=== PATIENT | male | born 1965 | race Caucasian/White ===

== ENCOUNTER 2024-11-24 10:15 | Emergency (ER) | payer OTHER, MEDICAID, SELFPAY ==
[2024-11-24] VITALS (46 sets, daily range): BP systolic 96–126; BP diastolic 46–84; PULSE 75–110; RESP 15–19; TEMP 36–38.1; O2SAT 87–100; BMI 29.8
--- NOTE | 2024-11-24 10:35 | PD.EDRME ---
Rapid Medical Screening Exam E Arrival date/time: 11/24/24 10:15 58-year-old male with a history of pancreatic cancer presents to the emergency room with a chief complaint of a low hemoglobin level. Patient is unsure what the level is but states his primary care provider called him and told him to come to the emergency room. I have greeted and performed a focused initial assessment of this patient. A comprehensive ED assessment and evaluation of the patient, analysis of all test results, and completion of the medical decision making process will be conducted by additional ED providers. Chief Complaint: General Adult/Misc Complain Vital signs: Vital Signs Temperature 99.4 F 11/24/24 10:28 Pulse Rate 100 11/24/24 10:28 Respiratory Rate 18 11/24/24 10:28 Blood Pressure 117/71 11/24/24 10:28 Pulse Oximetry (%) 100 11/24/24 10:28 Oxygen Delivery Method Room Air 11/24/24 10:28 Vital signs reviewed by provider: Yes
[2024-11-24 11:10] LABS: Basophils # (Auto) 0.0 Thou/mm3 (0.0-0.2); Basophils % (Auto) 0 % (0-2.5); Eosinophils # (Auto) 0.0 Thou/mm3 (0.0-0.5); Eosinophils % (Auto) 0 % (0-10); Immature Granulocytes Auto 0.23 Thou/mm3 (0.00-0.00); Lymphocytes # (Auto) 0.7 Thou/mm3 (1.0-4.8); Lymphocytes % (Auto) 21 % (10-50); Mean Corpuscular HGB Conc 35.8 g/dl (31.0-37.0); Mean Corpuscular Hemoglobin 29.7 pg (25.0-35.0); Mean Corpuscular Volume 83 fL (80-100); Monocytes # (Auto) 0.3 Thou/mm3 (0.0-0.8); Monocytes % (Auto) 10 % (0-12); Neutrophils # (Auto) 2.3 Thou/mm3 (1.8-7.7); Neutrophils % (Auto) 63 % (37-80); Nucleated Red Blood Cell # 0.00 Thou/mm3 (0.00-0.00); Nucleated Red Blood Cell % 0 /100 WBC (0); RDW Standard Deviation 55.4 fL (35.1-43.9); Red Blood Count 1.65 Miln/mm3 (4.50-5.90); White Blood Count 3.6 Thou/mm3 (3.8-10.6)
[2024-11-24 11:18] LABS: Hematocrit 13.7 % (41.0-53.0); Hemoglobin 4.9 g/dL (13.5-16.0); Platelet Count 78 Thou/mm3 (140-440)
[2024-11-24 11:22] LABS: INR 1.2 (0.9-1.3); Partial Thromboplastin Time 27.3 Seconds (22.0-36.0); Prothrombin Time 12.5 Seconds (9.0-12.2)
--- NOTE | 2024-11-24 11:23 | PD.EDADULT ---
ED General RME/HPI General Chief complaint: General Adult/Misc Complain Stated complaint: WEAKNESS, DIZZINESS, LOW HGB, SENT FOR TRANSFUSION Time Seen by Provider: 11/24/24 11:23 Arrival date/time: 11/24/24 10:15 RME / HPI RME / HPI narrative: 58-year-old male patient with significant history of pancreatic cancer, was sent to us by oncologist for anemia. Patient is followed by his oncologist every 2 weeks, and was noted to significant anemia. Patient denies any bleeding per rectum, no vomiting blood. Patient is currently not on any transfusion, patient told me that he is pancreatic cancer or any mets to the liver. Denies any other complaints except for generalized body weakness. Related Data Allergies Allergy/AdvReac Type Severity Reaction Status Date / Time hydrocodone Allergy Mild Nausea Verified 11/24/24 10:19 PCN Allergy Severe Anaphylaxis Uncoded 11/24/24 10:19 Review of Systems Review of Systems Narrative Review of Systems: Review of system reviewed and within normal limits except mentioned in HPI ED Exam Narrative Physical exam: VITAL SIGNS: Reviewed. GENERAL APPEARANCE: Alert and interactive, follows commands, no acute distress, HEAD AND FACE: Non-traumatic. ENT: PERRL, pale conjunctiva, eyelid no trauma, Mucous membrane moist. NECK: Supple, nontender, no nuchal rigidity. CHEST: No tenderness, no crepitus, no paradoxical movement, no retractions. LUNGS: Clear, well ventilated, symmetric, no rales, no wheezing, no ronchi, no stridor, good breath sounds bilaterally. HEART: Regular rate, regular rhythm, no murmur, no gallops. ABDOMEN: Soft, positive bowel sounds, nondistended, no guarding, nontender, no rebound, no masses, RECTAL: Deferred. GENITAL: Deferred. NEUROLOGICAL: Gross motor function intact sensory function intact, Appropriate for age. MUSCULOSKELETAL: low back nontender, full range of motion. EXTREMITIES: Nontender, full range of motion. SKIN: Color pale, dry, no rash, no lacerations, no abrasions, no contusions. LYMPHATICS: Deferred. Course Quality Measures none Orders Category Date Time Status Transfuse,blood/blood products ONCE Care 11/24/24 11:35 Active Diet Regular Diet 11/24/24 Lunch Active CBC Stat Lab 11/24/24 11:01 Completed CMP [Comprehensive Metabolic Panel] Stat Lab 11/24/24 11:01 Completed PT [Prothrombin Time with INR] Stat Lab 11/24/24 11:01 Completed PTT [Partial Thromboplastin Time] Stat Lab 11/24/24 11:01 Completed Path Review Blood Smear Stat Lab 11/24/24 11:01 Completed Type and Screen Stat Lab 11/24/24 11:01 Results prbc [Red Blood Cells] Stat Lab 11/24/24 11:01 Results Acetaminophen Tab [Tylenol ES Tab] Med 11/24/24 16:49 Discontinued 1,000 mg PO X1 ONE DiphenhydrAMINE [Benadryl] Med 11/24/24 16:49 Discontinued 50 mg PO X1 ONE HYDROmorphone INJ [Dilaudid Inj] Med 11/24/24 11:35 Discontinued 2 mg IVP X1 ONE Morphine Inj Med 11/24/24 14:44 Discontinued 5 mg IVP X1 ONE Vital Signs Vital signs: Vital Signs Temperature 99.4 F 11/24/24 10:28 Pulse Rate 100 11/24/24 10:28 Respiratory Rate 18 11/24/24 10:28 Blood Pressure 117/71 11/24/24 10:28 Pulse Oximetry (%) 100 11/24/24 10:28 Oxygen Delivery Method Room Air 11/24/24 10:28 Discharge Plan Plan Patient Disposition: HOME (Self Care) Discharge Disposition comment: Stable Prescriptions/Referrals Referrals: No Primary/Family,Physician [Primary Care Provider] - In 1 week Problem List Clinical Impression: Severe anemia, History of pancreatic cancer Patient/Caregiver Discharge Instructions Discharge Activity: activity as tolerated Education Materials: Anemia Additional Instructions: Thank you for the opportunity for serving you today. You are stable for discharged . You are advised to: Follow-up with your PCP in 1 to 2 days Return to ED for worsening of symptoms Print Language: Kiswahili Stand Alone Forms: Mile Award Info., Patient Portal Info Letter PA/LIZZY Supervising Physician NGHIA/LIZZY Supervising Physician: MD Dania MDM Narrative MDM hospital course: [id number] male patient with significant history of pancreatic cancer, was sent to us by oncologist for anemia. Patient is followed by his oncologist every 2 weeks, and was noted to significant anemia. Patient denies any bleeding per rectum, no vomiting blood. Patient is currently not on any transfusion, patient told me that he is pancreatic cancer or any mets to the liver. Denies any other complaints except for generalized body weakness. Patient's hemoglobin was noted to be 4.9 hematocrit of 13.7. Patient received 3 units of packed RBC. No posttransfusion reaction noted. Patient tolerated the procedure well. Clinical Information Provided by patient Medical Records Reviewed None Meds/Rx Considered, not Ordered None Chronic Illness/Social Conditions Add or document further as needed: History of pancreatic cancer Lab Interpretation Lab(s) interpretation(s): See results MDM Imaging Imaging interpretation: none Medication Administration(s) Medication Administration History Discontinued Medications Acetaminophen (Acetaminophen 500 Mg Tablet) 1,000 mg PO X1 ONE Stop: 11/24/24 16:50 Last Admin: 11/24/24 17:25 Dose: 1,000 mg Documented By: CG Diphenhydramine HCl (Diphenhydramine 25 Mg Capsule) 50 mg PO X1 ONE Stop: 11/24/24 16:50 Last Admin: 11/24/24 17:25 Dose: 50 mg Documented By: CG Hydromorphone HCl (Hydromorphone Inj 2 Mg/Ml Vial) 2 mg IVP X1 ONE Stop: 11/24/24 11:36 Last Admin: 11/24/24 12:06 Dose: 2 mg Documented By: CG Morphine Sulfate (Morphine Sulf Inj 10 Mg/Ml Vial) 5 mg IVP X1 ONE Stop: 11/24/24 14:45 Last Admin: 11/24/24 15:18 Dose: 5 mg Documented By: CG
[2024-11-24 11:25] LABS: Alanine Aminotransferase 25 U/L (10-49); Albumin, Serum 3.4 gm/dL (3.5-5.0); Albumin/Globulin Ratio 1.1 (1.2-2.2); Alkaline Phosphatase 529 U/L (46-116); Anion Gap 11 (7-16); Aspartate Amino Transferase 22 U/L (0-34); BUN/Creatinine Ratio 13 Ratio (12-20); Bilirubin,Total 0.9 mg/dL (0.3-1.2); Blood Urea Nitrogen 10 mg/dL (9-23); Calcium 8.4 mg/dL (8.3-10.6); Calcium (Corrected) 8.9 mg/dL (8.5-10.1); Carbon Dioxide 26.3 mMol/L (20.0-31.0); Chloride 100 mMol/L (98-107); Creatinine (Component) 0.8 mg/dL (0.6-1.3); Estimated Creatinine Clearance 135.7 mL/min (>60); Globulin 3.1 gm/dL (2.3-3.5); Glucose 165 mg/dL (74-106); Osmolality,Calculated 276 (275-295); Potassium 4.3 mMol/L (3.4-5.1); Sodium 137 mMol/L (136-145); Total Protein 6.5 gm/dL (5.7-8.2); eGFR > 60 See Note
[2024-11-24 11:48] LABS: Slide Review Platelets confirmed
[2024-11-24] MEDS: HYDROmorphone INJ 2 MG/ML VIAL IVP (12:06)
[2024-11-24] MEDS: MORPHINE SULF INJ 10 MG/ML VIAL 5 MG IVP (15:18)
[2024-11-24] MEDS: ACETAMINOPHEN 500 MG TABLET 1000 MG PO (17:25)
[2024-11-24 18:04] LABS: Path Review Blood Smear Sent to Pathologist
--- NOTE | 2024-11-24 21:32 | PC.NURSE ---
THE 3RD UNIT OF BLOOD WAS NOT DOCUMENTED BY PREVIOUS NURSE. PER CHARGE NURSE RK, HE REQUESTED TO START AND STOP THE BLOOD PRODUCT. THE TIMES THAT THE 3RD BLOOD PRODUCT WAS STARTED WAS APPROXIMATED BECAUSE THIS RN WAS NOT ON THE FLOOR DURING THAT TIME. THE FIRST 30MIN VITAL SIGNS WERE NOT CHARTED BY PREVIOUS RN
== END 2024-11-24 21:00 | disposition home or self-care (01) ==
PROVIDERS: Nurse Practitioner Family; Emergency Provider Family Medicine
DX: D64.9 Anemia, unspecified (principal); Z85.07 Personal history of malignant neoplasm of pancreas
CPT/HCPCS: 36415; 36430; 80053; 85025; 85610; 85730; 86850; 86900; 86901; 86923; 96374; 96375; 99284; J1171; J2270; P9016; A9270

== ENCOUNTER 2024-11-25 17:42 | Emergency (ER) | payer OTHER, MEDICAID, SELFPAY ==
[2024-11-25] VITALS (9 sets, daily range): BP systolic 107–132; BP diastolic 61–73; PULSE 87–117; RESP 10–19; TEMP 37–39.5; O2SAT 96–100; BMI 29.2
--- NOTE | 2024-11-25 18:03 | XR_ITS ---
Examination: PA lateral chest 2 views Technique portable upright PA lateral chest 2 views Date and time: November 25, 2024 1817 hours INDICATIONS: Shortness of breath coughing today. FINDINGS: Normal heart size The lungs are clear. The osseous structures are intact. IMPRESSION: No active disease.
--- NOTE | 2024-11-25 18:03 | EKG_ITS ---
[facility] Test Date: 2024-11-25 Pat Name: CAMERON EDGAR Department: Room: - Gender: Male [employer]: : 1965 Requested By: Nataliya North Order Number: [id number] Reading MD: Nataliya North Measurements Intervals [place]ley Rate: 102 P: 64 OK: 145 QRS: 29 QRSD: 83 T: 32 QT: 312 QTc: 407 Interpretive Statements SINUS TACHYCARDIA ABNORMAL RHYTHM ECG No previous ECG available for comparison /store/S0/[id number]/[id number].pdf
--- NOTE | 2024-11-25 18:05 | XR_ITS ---
Examination: CT chest with intravenous contrast CT abdomen with intravenous contrast CT pelvis with intravenous contrast 2-D coronal and sagittal reconstructions Time of exam: November 25, 2024 1930 hours INDICATIONS: Anemia, fever coughing chest and abdominal pain beginning yesterday CTDI: vol (mGy) : 12.5 DLP: (mGycm): 1037 Technique: Multiple axial images of the chest, abdomen and pelvis with intravenous contrast, 3.0 mm slice thickness. Images obtained post intravenous injection Isovue 370 60 cc. 2-D sagittal and coronal reconstructions. Low dose protocols were performed. One or more of the following dose reduction techniques were used; automated exposure control, adjustment of the mA and/or KV according to patient size, use of iterative reconstruction technique. Findings: No thoracic aortic aneurysm dilatation No pulmonary artery filling defects No paratracheal tracheobronchial or bronchopulmonary adenopathy 4 mm pulmonary nodule right upper lobe image 97 5 mm pulmonary nodule right lower lobe image 206 No visualized liver or splenic lesion Gastric sutures Biliary stent satisfactory position Gallbladder wall appears mildly thickened No current biliary tract dilatation Spleen is not enlarged No hydronephrosis or renal calculi No bowel obstruction Urinary bladder wall is thickened up to 6 mm No significant prostatomegaly Osseous structures intact IMPRESSION: No pneumonia or pulmonary edema Noncalcified pulmonary nodules as above, with this study is baseline recommend 6 month follow-up CT chest without contrast Biliary stent satisfactory position Recommend hepatobiliary sonography follow-up to exclude gallbladder wall thickening Cystitis pattern
--- NOTE | 2024-11-25 18:05 | EDNOTE_ITS ---
ED Fever RME/HPI General Chief Complaint: Fever Stated Complaint: High fever 103, nausea Time Seen by Provider: 11/25/24 17:55 Arrival date/time: 11/25/24 17:42 RME / HPI RME / HPI Narrative: 58-year-old male patient with significant history of pancreatic cancer, was brought in by family for evaluation regarding fever. Patient woke up this morning with fever, it was mild earlier took a nap and woke up with a fever of 103. Patient also complained of cough, and chronic abdominal pain due to pancreatic cancer. Was diagnosed recently however still pending chemotherapy and radiation. Denies any other complaints. Patient was seen here yesterday and was given 3 units of packed RBC. No medication taken prior to arrival. In the ER patient is tachycardic 117 and temperature 103 sepsis alert was initiated right away. Related Data Allergies Allergy/AdvReac Type Severity Reaction Status Date / Time hydrocodone Allergy Mild Nausea Verified 11/25/24 17:46 PCN Allergy Severe Anaphylaxis Uncoded 11/25/24 17:46 Review of Systems Review of Systems Narrative Review of Systems: Review of system reviewed and within normal limits except mentioned in HPI Physical Exam Narrative Physical exam: VITAL SIGNS: Reviewed. GENERAL APPEARANCE: Alert and interactive, follows commands, no acute distress, febrile HEAD AND FACE: Non-traumatic. ENT: PERRL, pink conjunctivitis, eyelid no trauma, Mucous membrane moist. NECK: Supple, nontender, no nuchal rigidity. CHEST: No tenderness, no crepitus, no paradoxical movement, no retractions. LUNGS: Clear, well ventilated, symmetric, no rales, no wheezing, no ronchi, no stridor, good breath sounds bilaterally. HEART: Tachycardic, no murmur, no gallops. ABDOMEN: Soft, positive bowel sounds, nondistended, no guarding, nontender, no rebound, no masses, RECTAL: Deferred. GENITAL: Deferred. NEUROLOGICAL: Gross motor function intact sensory function intact, Appropriate for age. MUSCULOSKELETAL: low back nontender, full range of motion. EXTREMITIES: Nontender, full range of motion. SKIN: Color pink, dry, no rash, no lacerations, no abrasions, no contusions. LYMPHATICS: Deferred. Course Quality Measures none Orders Category Date Time Status Bedside COVID-19 Antigen Test NOW Care 11/25/24 18:[address] Screening NOW Care 11/25/24 18:05 Active First Line Production Supervisor STAT Care 11/25/24 18:03 Active Continuous Pulse Oximetry STAT Care 11/25/24 18:03 Completed EKG (ED ONLY) *Do not use* NOW Care 11/25/24 18:03 Completed In and Out Catheter [id number] Care 11/25/24 18:03 Active Insert IV NOW Care 11/25/24 18:03 Active NPO STAT Care 11/25/24 18:03 Active Strict Intake and Output Routine Care 11/25/24 18:[address] chest abdomen pelvis w Stat Exams 11/25/24 18:05 Completed EKG (ED Only) Stat Exams 11/25/24 18:03 Draft US gall bladder Stat Exams 11/25/24 21:32 Taken XR chest 2V Stat Exams 11/25/24 18:03 Completed B-Type Natriuretic Peptide Stat Lab 11/25/24 18:09 Completed Blood Culture (Lab) Stat Lab 11/25/24 18:03 Received CBC Stat Lab 11/25/24 18:09 Completed Comprehensive Metabolic Panel Stat Lab 11/25/24 18:09 Completed LDH (Lactate Dehydrogenase) Stat Lab 11/25/24 18:09 Completed Lactate (Lactic Acid) Stat Lab 11/25/24 18:09 Completed Lipase Stat Lab 11/25/24 18:09 Completed Magnesium Stat Lab 11/25/24 18:09 Completed Partial Thromboplastin Time Stat Lab 11/25/24 18:09 Completed Phosphorous Stat Lab 11/25/24 18:09 Completed Procalcitonin Stat Lab 11/25/24 18:09 Completed Prothrombin Time with INR Stat Lab 11/25/24 18:09 Completed Troponin I Stat Lab 11/25/24 18:09 Completed Urinalysis Stat Lab 11/25/24 21:19 Completed Urine Culture Stat Lab 11/25/24 21:19 Received Acetaminophen Tab [Tylenol ES Tab] Med 11/25/24 18:04 Discontinued 1,000 mg PO X1 ONE HYDROmorphone INJ [Dilaudid Inj] Med 11/25/24 19:12 Discontinued 2 mg IVP X1 ONE Magnesium Sulfate 2 GM Ivpb [Magnesium Sulfate Ivpb] Med 11/25/24 19:27 Discontinued 2 gm in 50 ml IV X1 Ringers Lactated 1000 ml [Lactated Ringers] 1,000 ml Med 11/25/24 18:04 Discontinued IV 999 mls/hr cefTRIAXone/D5w 1gm IV premix [Rocephin/D5w 1gm IV Med 11/25/24 18:04 Discontinued premix] 1 gm in 50 ml IV X1 Oxygen Delivery NOW RT 11/25/24 18:03 Active Vital Signs Vital signs: Vital Signs Temperature 103.1 F H 11/25/24 17:53 Pulse Rate 117 H 11/25/24 17:53 Respiratory Rate 19 11/25/24 17:53 Blood Pressure 110/63 11/25/24 17:53 Pulse Oximetry (%) 96 11/25/24 17:53 Oxygen Delivery Method Room Air 11/25/24 17:53 Fever MDM Narrative MDM Narrative:: 58-year-old male patient with significant history of pancreatic cancer, was brought in by family for evaluation regarding fever. Patient woke up this morning with fever, it was mild earlier took a nap and woke up with a fever of 103. Patient also complained of cough, and chronic abdominal pain due to pancreatic cancer. Was diagnosed recently however still pending chemotherapy and radiation. Denies any other complaints. Patient was seen here yesterday and was given 3 units of packed RBC. No medication taken prior to arrival. In the ER patient is tachycardic 117 and temperature 103 sepsis alert was initiated right away. EKG showed sinus tachycardia, ventricular to 102 bpm, no ST segment elevation or depression. CT scan of the chest abdomen and pelvis showed No pneumonia or pulmonary edema Noncalcified pulmonary nodules as above, with this study is baseline recommend 6 month follow-up CT chest without contrast Biliary stent satisfactory position Recommend hepatobiliary sonography follow-up to exclude gallbladder wall thickening Cystitis pattern Chest x-ray came back unremarkable. Ultrasound of the gallbladder came back unremarkable per my interpretation. Patient's lactic acid was noted to be normal, CBC still anemic 7.1 however patient just received 3 packed RBC yesterday. Yesterday's hemoglobin was noted to be 4.8. WBC count was noted to be 3.3 Urinalysis no UTI. Patient received IV fluids, Tylenol, and IV ceftriaxone. Patient's probably having fever secondary to the blood transfusion yesterday. Patient told me that he feels better after medication was given. He wanted to go home. Advised him to come back right away for worsening of symptoms Patient data External records reviewed:: None Clinical information provided by:: patient Social determinants that could affect healthcare access:: none Patient has the following chronic illnesses:: History of pancreatic cancer How is presenting disease/condition affected by chronic disease/condition?: exacerbated by Evaluation data The following diagnostics were reviewed and interpreted by me:: lab results, radiology exam(s) and EKG tracing(s) Lab and/or radiology exams considered but not ordered:: Stable Interpretation Summary: See results in MDM Medications / Prescriptions Medications or Prescriptions considered but not ordered:: None Medication administrations:: Medication Administration History Discontinued Medications Acetaminophen (Acetaminophen 500 Mg Tablet) 1,000 mg PO X1 ONE Stop: 11/25/24 18:05 Last Admin: 11/25/24 18:55 Dose: 1,000 mg Documented By: JAQUELINE Hydromorphone HCl (Hydromorphone Inj 2 Mg/Ml Vial) 2 mg IVP X1 ONE Stop: 11/25/24 19:13 Last Admin: 11/25/24 19:39 Dose: 2 mg Documented By: CANDY Lactated Ringer's (Lactated Ringers) 1,000 mls @ 999 mls/hr IV .Q1H1M ONE Stop: 11/25/24 19:04 Last Infusion: 11/25/24 20:54 Dose: Infused Documented By: Admin: 11/25/24 18:58 Dose: 999 mls/hr Documented By: JAQUELINE Ceftriaxone Sodium/Dextrose (Rocephin/D5w 1gm Iv Premix) 1 gm in 50 mls @ 100 mls/hr IV X1 ONE Stop: 11/25/24 18:33 Last Infusion: 11/25/24 19:47 Dose: Infused Documented By: Admin: 11/25/24 18:55 Dose: 100 mls/hr Documented By: JAQUELINE Magnesium Sulfate (Magnesium Sulfate Ivpb) 2 gm in 50 mls @ 25 mls/hr IV X1 ONE Stop: 11/25/24 21:26 Last Infusion: 11/25/24 22:15 Dose: Infused Documented By: Admin: 11/25/24 20:08 Dose: 25 mls/hr Documented By: CANDY Magnesium sulfate, ceftriaxone IV, IV fluids, Dilaudid, Tylenol Consultations Consultation(s) initiated? (list below): No Diagnosis Fever Differential Diagnosis: fever of unknown origin, community acquired pneumonia and sepsis Most likely diagnosis given after review of the tests above:: Fever Admission Indicated Admission indicated?: not indicated Admission Request Was there a request for admission?: No Disposition Plan Disposition Plan: Discharge Discharge Attestation Discharge Attestation: The patient was given an opportunity to ask questions and understood the discharge instructions. Discharge instructions specifically effects, indications for sooner follow up or return to the emergency department, and the expected course of current diagnosis. Patient condition: Stable Discharge Plan Plan Patient Disposition: HOME (Self Care) Discharge Disposition comment: Stable Prescriptions/Referrals Referrals: No Primary/Family,Physician [Primary Care Provider] - In 1 week Problem List Clinical Impression: Fever Patient/Caregiver Discharge Instructions Discharge Activity: activity as tolerated Education Materials: ED FUO Adult Additional Instructions: Thank you for the opportunity for serving you today. You are stable for dis charged . You are advised to: Follow-up with your PCP in 1 to 2 days Return to ED for worsening of symptoms Increase oral fluids Take Tylenol or Motrin as needed Print Language: St Helen[place] Stand Alone Forms: Mile Award Info., Patient Portal Info Letter NGHIA/LIZZY Supervising Physician NGHIA/LIZZY Supervising Physician: MD Dania
[2024-11-25 18:21] LABS: Lactate (Lactic Acid) 0.9 mMol/L (0.4-2.0)
[2024-11-25 18:28] LABS: Basophils # (Auto) 0.0 Thou/mm3 (0.0-0.2); Basophils % (Auto) 0 % (0-2.5); Eosinophils # (Auto) 0.0 Thou/mm3 (0.0-0.5); Eosinophils % (Auto) 0 % (0-10); Immature Granulocytes Auto 0.04 Thou/mm3 (0.00-0.00); Lymphocytes # (Auto) 0.9 Thou/mm3 (1.0-4.8); Lymphocytes % (Auto) 26 % (10-50); Mean Corpuscular HGB Conc 35.7 g/dl (31.0-37.0); Mean Corpuscular Hemoglobin 29.6 pg (25.0-35.0); Mean Corpuscular Volume 83 fL (80-100); Monocytes # (Auto) 0.3 Thou/mm3 (0.0-0.8); Monocytes % (Auto) 10 % (0-12); Neutrophils # (Auto) 2.1 Thou/mm3 (1.8-7.7); Neutrophils % (Auto) 63 % (37-80); Nucleated Red Blood Cell # 0.00 Thou/mm3 (0.00-0.00); Nucleated Red Blood Cell % 0 /100 WBC (0); Platelet Count 101 Thou/mm3 (140-440); RDW Standard Deviation 50.0 fL (35.1-43.9); Red Blood Count 2.40 Miln/mm3 (4.50-5.90); White Blood Count 3.3 Thou/mm3 (3.8-10.6)
[2024-11-25 18:31] LABS: Hemoglobin 7.1 g/dL (13.5-16.0)
[2024-11-25 18:33] LABS: Hematocrit 19.9 % (41.0-53.0)
[2024-11-25 18:38] LABS: INR 1.3 (0.9-1.3); Partial Thromboplastin Time 26.8 Seconds (22.0-36.0); Prothrombin Time 13.5 Seconds (9.0-12.2)
[2024-11-25 18:40] LABS: B-Type Natriuretic Peptide 86 pg/mL (0-100)
[2024-11-25 18:49] LABS: Alanine Aminotransferase 14 U/L (10-49); Albumin, Serum 3.4 gm/dL (3.5-5.0); Albumin/Globulin Ratio 1.1 (1.2-2.2); Alkaline Phosphatase 422 U/L (46-116); Anion Gap 7 (7-16); Aspartate Amino Transferase 11 U/L (0-34); BUN/Creatinine Ratio 11 Ratio (12-20); Bilirubin,Total 1.4 mg/dL (0.3-1.2); Blood Urea Nitrogen 9 mg/dL (9-23); Calcium 8.3 mg/dL (8.3-10.6); Calcium (Corrected) 8.8 mg/dL (8.5-10.1); Carbon Dioxide 26.0 mMol/L (20.0-31.0); Chloride 102 mMol/L (98-107); Creatinine (Component) 0.8 mg/dL (0.6-1.3); Estimated Creatinine Clearance 134.5 mL/min (>60); Globulin 3.1 gm/dL (2.3-3.5); Glucose 114 mg/dL (74-106); LDH (Lactate Dehydrogenase) 119 U/L (120-246); Lipase 60 U/L (12-53); Magnesium 1.2 mg/dL (1.6-2.6); Osmolality,Calculated 269 (275-295); Phosphorous 3.3 mg/dL (2.4-5.1); Potassium 4.4 mMol/L (3.4-5.1); Procalcitonin 0.12 ng/ml (0.0-0.49); Sodium 135 mMol/L (136-145); Total Protein 6.5 gm/dL (5.7-8.2); Troponin I < 0.002 ng/mL (0.0-0.045); eGFR > 60 See Note
[2024-11-25] MEDS: ACETAMINOPHEN 500 MG TABLET 1000 MG PO (18:55)
[2024-11-25] MEDS: cefTRIAXone/D5w 1gm IV premix 1 GM/50 ML BAG IV (18:55)
[2024-11-25] MEDS: RINGERS LACTATED 1000 ML 1,000 ML 999 ML IV (18:58)
--- NOTE | 2024-11-25 19:07 | PC.NURSE ---
PT GIVEN ICE PACKS FOR COOLING MEASURES, PT TAKES MORPHINE Q8HRS AND DILAUDED IN BETWEEN, PT REQUESTING MORPHINE FOR PAIN PROVIDER MADE AWARE.
[2024-11-25] MEDS: HYDROmorphone INJ 2 MG/ML VIAL IVP (19:39)
[2024-11-25] MEDS: Magnesium Sulfate 2 GM Ivpb 2 GM/50 ML BAG IV (20:08)
[2024-11-25 21:31] LABS: Collection Type, Urine Clean Catch; RBC,Urine 0 /hpf (0-3); WBC,Urine 0 /hpf (0-5)
--- NOTE | 2024-11-25 21:32 | XR_ITS ---
Examination: Abdomen sonogram, Limited Date and time of exam: November 25, 2024 2152 hours INDICATIONS: Gallbladder wall appears thickened on CT abdomen study today Technique: Real-time keane scale transabdominal sonographic images of the upper abdomen obtained. Findings: Negative for gallstones Gallbladder wall 0.7 cm Common bile duct 0.7 cm Pancreatic head 3.4 cm Liver 21.9 cm fatty infiltration Normal bilateral renal border [place] [employer] IVC IMPRESSION: Suspicious for cholecystitis, suggest HIDA scan or MRCP follow-up
[2024-11-25 21:57] LABS: Bilirubin,Urine Negative (Negative); Blood,Urine Negative (Negative); Clarity,Urine Clear (Clear/Hazy); Color,Urine Yellow (Lt Yel-Yel); Glucose, Urine Negative (Negative); Ketones,Urine 1+ (Negative); Leukocyte Esterase,Urine Negative (Negative); Nitrite,Urine Negative (Negative); PH,Urine 7.0 (5.0-7.0); Protein,Urine Trace (Neg - Trace); Specific Gravity,Urine > 1.035 (1.001-1.035); Squamous Epithelial Cell,Urine < 1 /hpf (0-5); Urobilinogen,Urine 3.0 mg/dL (0.0-1.0)
== END 2024-11-25 22:48 | disposition home or self-care (01) ==
PROVIDERS: Nurse Practitioner Family; Emergency Provider Emergency Medicine
DX: R50.9 Fever, unspecified (principal); D64.9 Anemia, unspecified; R00.0 Tachycardia, unspecified; R06.02 Shortness of breath; R05.9 Cough, unspecified; R10.9 Unspecified abdominal pain
CPT/HCPCS: 36415; 71046; 71260; 74177; 76705; 80053; 81001; 83605; 83615; 83690; 83735; 83880; 84100; 84145; 84484; 85025; 85610; 85730; 87040; 87077; 87086; 87186; 87811; 93005; 96365; 96366; 96375; 99284; A4649; J0696; J1171; J3475; J7120; Q9967; A9270

== ENCOUNTER 2024-12-02 06:39 | Emergency (ER) | payer OTHER, MEDICAID, SELFPAY ==
[2024-12-02] VITALS (34 sets, daily range): BP systolic 104–129; BP diastolic 42–72; PULSE 67–108; RESP 1–110; TEMP 36–37.6; O2SAT 92–100; BMI 32.8
--- NOTE | 2024-12-02 07:10 | PD.EDWEAK ---
ED Weakness RME/HPI General Chief complaint: General Adult/Misc Complain Stated complaint: NEED BLOOD TRANSFUSION Time Seen by Provider: 12/02/24 07:09 Arrival date/time: 12/02/24 06:39 Limitations: no limitations RME / HPI RME / HPI Narrative: DR. CHEL PRICE ED EVALUATION: 58-year-old male with past medical history of pancreatic cancer and hypertension (on amlodipine) presents to the Emergency Department sent for a blood transfusion after labs showed low hemoglobin; patient does complain of generalized weakness and fatigue. Denies shortness of breath. Patient is currently undergoing evaluation for possible treatment to stimulate bone marrow function and is set up with [facility] for ongoing care. Allergies include penicillin and hydrocodone. Related Data Allergies Allergy/AdvReac Type Severity Reaction Status Date / Time hydrocodone Allergy Mild Nausea Verified 12/02/24 08:10 Penicillins Allergy Verified 12/02/24 08:10 Review of Systems Review of Systems Systems Reviewed: All systems reviewed, normal except as documented Past Medical History Past Medical History OTHER HISTORY: Positive Cancer (pancreatic cancer) Social History SMOKING STATUS: Never smoker SUBSTANCE USE: does not use ALCOHOL: Never ED Exam General Limitations: Present no limitations General appearance: Present alert, in no apparent distress and other (looks pale) Head Head exam: Present atraumatic, normocephalic and normal inspection Eye Eye exam: Present normal appearance, PERRL and EOMI ENT ENT exam: Present normal exam, normal oropharynx and mucous membranes moist Neck Neck exam: Present normal inspection, full ROM and trachea midline Chest Chest inspection: Present normal inspection and symmetric chest wall rise Respiratory Respiratory exam: Present normal lung sounds bilaterally Cardiovascular Cardiovascular exam: Present regular rate, normal rhythm and normal heart sounds Abdominal Exam Abdominal exam: Present soft and normal bowel sounds Extremities Exam Extremities exam: Present normal inspection and full ROM Back Exam Back exam: Present normal inspection and full ROM Neurological Exam Neurological exam: Present alert, oriented X3 and CN II-XII intact Psychiatric Psychiatric exam: Present normal affect and normal mood Skin Skin exam: Present warm, dry, intact and pallor Course Quality Measures none Orders Category Date Time Status Transfuse,blood/blood products NOW Care 12/02/24 09:26 Active Diet Regular Diet 12/02/24 Lunch Active CBC Stat Lab 12/02/24 07:35 Completed CMP [Comprehensive Metabolic Panel] Stat Lab 12/02/24 07:35 Completed PT [Prothrombin Time with INR] Stat Lab 12/02/24 07:35 Completed Path Review Blood Smear Stat Lab 12/02/24 07:35 Completed Type and Screen Stat Lab 12/02/24 07:35 Completed prbc [Red Blood Cells] Stat Lab 12/02/24 07:35 Completed Morphine Oral SR [MS Contin] Med 12/02/24 15:19 Discontinued 30 mg PO X1 ONE Vital Signs Vital signs: Vital Signs Temperature 98.5 F 12/02/24 06:44 Pulse Rate 90 12/02/24 06:44 Respiratory Rate 18 12/02/24 06:44 Blood Pressure 129/72 12/02/24 06:44 Pulse Oximetry (%) 100 12/02/24 06:44 Oxygen Delivery Method Room Air 12/02/24 06:44 Weakness MDM Narrative MDM Narrative:: I, Shazia Thompson, am scribing for and in the presence of Dr. Mendez. Patient is a 58-year-old male with history notable for chronic cancer, bone marrow failure seen emergency department with concerns for weakness and abnormal labs. Vital signs and exam as listed. Patient was notified by primary care doctor that his hemoglobin is less than 7 he has required frequent blood transfusions in the past. Other than this has no complaints. Ordered labs, type and screen. Labs with evidence of worsening pancytopenia. Patient is immunocompromise and has a pulmonary disorder that is known and is being followed by his oncologist. Patient hemoglobin is 5. Will order 2 unit of blood. Patient received blood transfusions tolerated well no complications plan will discharge home close return precautions follow-up with As well as his oncologist Patient data External records reviewed:: [facility] previous records Clinical information provided by:: patient Social determinants that could affect healthcare access:: none Patient has the following chronic illnesses:: Pancreatic cancer and hypertension (on amlodipine). Patient is currently undergoing evaluation for possible treatment to stimulate bone marrow function and is set up with [facility] for ongoing care. Allergies include penicillin and hydrocodone. How is presenting disease/condition affected by chronic disease/condition?: exacerbated by Evaluation data The following diagnostics were reviewed and interpreted by me:: lab results Lab and/or radiology exams considered but not ordered:: none Interpretation Summary: See narrative above. Medications / Prescriptions Medications or Prescriptions considered but not ordered:: none Medication administrations:: Medication Administration History Discontinued Medications Morphine Sulfate (Morphine Sulf 30 Mg Tabcr) 30 mg PO X1 ONE; Protocol Stop: 12/02/24 15:20 Last Admin: 12/02/24 15:36 Dose: 30 mg Documented By: CG see above if any Consultations Consultation(s) initiated? (list below): No Diagnosis Weakness Differential Diagnosis: other (Anemia of chronic disease, chemotherapy-related bone marrow suppression, and recurrent or metastatic malignancy.) Most likely diagnosis given after review of the tests above:: Pancytopenia, symptomatic anemia Admission Indicated Admission indicated?: not indicated Admission Request Was there a request for admission?: No Disposition Plan Disposition Plan: Discharge Discharge Attestation Discharge Attestation: The patient and all family members were given an opportunity to ask questions and understood the discharge instructions. Discharge instructions specifically effects, indications for sooner follow up or return to the emergency department, and the expected course of current diagnosis. Patient condition: Stable Critical Care Time Critical Care Time Critical Care Time: Yes Total Critical Care Time (min.): 40 Attestation: The high probability of sudden, clinically significant deterioration in the patient?s condition required the highest level of my preparedness to intervene urgently. The services I provided to this patient were to treat and/or prevent clinically significant deterioration. Services included the following: chart data review, reviewing nursing notes and/or old charts, documentation time, speech correction consultant collaboration regarding findings and treatment options, medication orders and management, direct patient care, vital sign assessments and ordering, interpreting and reviewing diagnostic studies and lab tests. Aggregate critical care time includes only time during which I was engaged in work directly related to the patient?s care, as described above, whether at bedside or elsewhere in the Emergency Department. It did not include time spent performing other reported procedures or the services of residents, students, nurses or physician assistants. Discharge Plan Plan Patient Disposition: HOME (Self Care) Problem List Clinical Impression: Symptomatic anemia Patient/Caregiver Discharge Instructions Education Materials: Anemia Additional Instructions: Please return immediately if you have any worsening symptoms or any new symptoms of concern. Please continue to follow-up with your providers and oncologist. Print Language: Ukrainian Stand Alone Forms: [facility] Info., Patient Portal Info Letter
[2024-12-02 07:53] LABS: Basophils # (Auto) 0.0 Thou/mm3 (0.0-0.2); Basophils % (Auto) 0 % (0-2.5); Eosinophils # (Auto) 0.0 Thou/mm3 (0.0-0.5); Eosinophils % (Auto) 0 % (0-10); Immature Granulocytes Auto 0.01 Thou/mm3 (0.00-0.00); Lymphocytes # (Auto) 1.0 Thou/mm3 (1.0-4.8); Lymphocytes % (Auto) 50 % (10-50); Mean Corpuscular HGB Conc 33.8 g/dl (31.0-37.0); Mean Corpuscular Hemoglobin 29.7 pg (25.0-35.0); Mean Corpuscular Volume 88 fL (80-100); Monocytes # (Auto) 0.1 Thou/mm3 (0.0-0.8); Monocytes % (Auto) 7 % (0-12); Neutrophils # (Auto) 0.8 Thou/mm3 (1.8-7.7); Neutrophils % (Auto) 43 % (37-80); Nucleated Red Blood Cell # 0.00 Thou/mm3 (0.00-0.00); Nucleated Red Blood Cell % 0 /100 WBC (0); Platelet Count 86 Thou/mm3 (140-440); RDW Standard Deviation 54.4 fL (35.1-43.9); Red Blood Count 1.75 Miln/mm3 (4.50-5.90)
[2024-12-02 08:23] LABS: Alanine Aminotransferase 12 U/L (10-49); Albumin, Serum 3.2 gm/dL (3.5-5.0); Albumin/Globulin Ratio 1.1 (1.2-2.2); Alkaline Phosphatase 316 U/L (46-116); Anion Gap 5 (7-16); Aspartate Amino Transferase 12 U/L (0-34); BUN/Creatinine Ratio 14 Ratio (12-20); Bilirubin,Total 0.9 mg/dL (0.3-1.2); Blood Urea Nitrogen 10 mg/dL (9-23); Calcium 8.5 mg/dL (8.3-10.6); Calcium (Corrected) 9.1 mg/dL (8.5-10.1); Carbon Dioxide 29.6 mMol/L (20.0-31.0); Chloride 103 mMol/L (98-107); Creatinine (Component) 0.7 mg/dL (0.6-1.3); Estimated Creatinine Clearance 162.4 mL/min (>60); Globulin 2.8 gm/dL (2.3-3.5); Glucose 170 mg/dL (74-106); Osmolality,Calculated 278 (275-295); Potassium 4.4 mMol/L (3.4-5.1); Sodium 138 mMol/L (136-145); Total Protein 6.0 gm/dL (5.7-8.2); eGFR > 60 See Note
[2024-12-02 08:40] LABS: INR 1.1 (0.9-1.3); Prothrombin Time 12.0 Seconds (9.0-12.2)
[2024-12-02 08:50] LABS: White Blood Count 1.9 Thou/mm3 (3.8-10.6)
[2024-12-02 08:51] LABS: Hematocrit 15.4 % (41.0-53.0); Hemoglobin 5.2 g/dL (13.5-16.0)
[2024-12-02 09:33] LABS: Path Review Blood Smear Sent to Pathologist
[2024-12-02] MEDS: MORPHINE SULF 30 MG TABCR PO (15:36)
== END 2024-12-02 17:45 | disposition home or self-care (01) ==
PROVIDERS: Emergency Provider Emergency Medicine
DX: D64.9 Anemia, unspecified (principal)
CPT/HCPCS: 36415; 36430; 80053; 85025; 85610; 86850; 86900; 86901; 86923; 99284; P9016; A9270

== ENCOUNTER 2024-12-07 12:09 | Emergency (ER) | payer OTHER, SELFPAY ==
[2024-12-07] VITALS (14 sets, daily range): BP systolic 117–143; BP diastolic 56–80; PULSE 68–95; RESP 16–19; TEMP 36.4–37.3; O2SAT 98–100; BMI 29.2
--- NOTE | 2024-12-07 12:40 | EKG_ITS ---
[facility] Test Date: 2024-12-07 Pat Name: CAMERON EDGAR Department: Room: - Gender: Male [employer]: : 1965 Requested By: ED Temporary Provider Order Number: [id number] Reading MD: ED Temporary Provider Measurements Intervals [place] Rate: 81 P: 49 NH: 157 QRS: 24 QRSD: 94 T: 32 QT: 344 QTc: 401 Interpretive Statements SINUS RHYTHM Compared to ECG 11/25/2024 18:31:32 Sinus tachycardia no longer present /store/S0/[id number].pdf
--- NOTE | 2024-12-07 12:55 | EDNOTE_ITS ---
ED Recheck Abnl Lab Rx-RME/HPI General Chief Complaint: Recheck/Abnormal Lab/Rx Stated Complaint: HGB LOW; CANCER PATIENT (PANCREATIC/BONE MARROW) Time Seen by Provider: 12/07/24 12:15 Arrival date/time: 12/07/24 12:09 RME / HPI RME / HPI narrative: 58-year-old male patient with significant history of pancreatic/bone cancer with mets, came in for eval regarding severe anemia. Patient was seen here last week for a hemoglobin of 5.2 patient received 2 units of packed RBC. Patient is complaining of generalized body weakness, and easy fatigability. Patient denies any vomiting blood or blood in the stool or changes in the color of the stool. Patient still not on chemotherapy will see his cancer specialist next week. Related Data Allergies Allergy/AdvReac Type Severity Reaction Status Date / Time hydrocodone Allergy Mild Nausea Verified 12/07/24 12:13 Penicillins Allergy Verified 12/07/24 12:13 Review of Systems Review of Systems Narrative Review of Systems: Review of system reviewed and within normal limits except mentioned in HPI ED Exam Narrative Physical exam: VITAL SIGNS: Reviewed. GENERAL APPEARANCE: Alert and interactive, follows commands, no acute distress, HEAD AND FACE: Non-traumatic. ENT: PERRL, pale conjunctiva, eyelid no trauma, Mucous membrane moist. NECK: Supple, nontender, no nuchal rigidity. CHEST: No tenderness, no crepitus, no paradoxical movement, no retractions. LUNGS: Clear, well ventilated, symmetric, no rales, no wheezing, no ronchi, no stridor, good breath sounds bilaterally. HEART: Regular rate, regular rhythm, no murmur, no gallops. ABDOMEN: Soft, positive bowel sounds, nondistended, no guarding, nontender, no rebound, no masses, RECTAL: Deferred. GENITAL: Deferred. NEUROLOGICAL: Gross motor function intact sensory function intact, Appropriate for age. MUSCULOSKELETAL: low back nontender, full range of motion. EXTREMITIES: Nontender, full range of motion. SKIN: Color pale, dry, no rash, no lacerations, no abrasions, no contusions. LYMPHATICS: Deferred. Course Quality Measures none Orders Category Date Time Status EKG (ED ONLY) *Do not use* NOW Care 12/07/24 12:40 Completed Insert IV NOW Care 12/07/24 13:15 Active Transfuse,blood/blood products ONCE Care 12/07/24 12:55 Active EKG (ED Only) Stat Exams 12/07/24 12:40 Ordered EKG (ED Only) Urgent Exams 12/07/24 12:40 Draft CBC Stat Lab 12/07/24 13:10 Completed Comprehensive Metabolic Panel Stat Lab 12/07/24 13:10 Completed Prothrombin Time with INR Stat Lab 12/07/24 13:10 Completed Red Blood Cells Stat Lab 12/07/24 13:10 Completed Type and Screen Stat Lab 12/07/24 13:10 Completed Urinalysis Stat Lab 12/07/24 12:55 Ordered Acetaminophen Tab [Tylenol ES Tab] Med 12/07/24 14:50 Discontinued 1,000 mg PO X1 ONE DiphenhydrAMINE [Benadryl] Med 12/07/24 14:50 Discontinued 50 mg PO X1 ONE Vital Signs Vital signs: Vital Signs Temperature 98.0 F 12/07/24 12:28 Pulse Rate 95 12/07/24 12:28 Respiratory Rate 17 12/07/24 12:28 Blood Pressure 127/65 12/07/24 12:28 Pulse Oximetry (%) 98 12/07/24 12:28 Oxygen Delivery Method Room Air 12/07/24 12:28 Recheck / Abnormal Lab / Rx MDM Narrative MDM Narrative:: 58-year-old male patient with significant history of pancreatic/bone cancer with mets, came in for eval regarding severe anemia. Patient was seen here last week for a hemoglobin of 5.2 patient received 2 units of packed RBC. Patient is complaining of generalized body weakness, and easy fatigability. Patient denies any vomiting blood or blood in the stool or changes in the color of the stool. Patient still not on chemotherapy will see his cancer specialist next week. Patient's hemoglobin today was noted to be 6.0, hematocrit of 70.9. Patient received 2 units of packed RBC. No transfusion reaction noted. Patient is ready to go home. EKG showed sinus rhythm, ventricular rate of 81 bpm, no ST segment elevation or depression noted. Patient data External records reviewed:: None Clinical information provided by:: patient Social determinants that could affect healthcare access:: none Patient has the following chronic illnesses:: History of pancreatic cancer How is presenting disease/condition affected by chronic disease/condition?: no chronic disease Evaluation data The following diagnostics were reviewed and interpreted by me:: lab results and EKG tracing(s) Lab and/or radiology exams considered but not ordered:: None Interpretation Summary: See results MDM Medications / Prescriptions Medications or Prescriptions considered but not ordered:: None Medication administrations:: Medication Administration History Discontinued Medications Acetaminophen (Acetaminophen 500 Mg Tablet) 1,000 mg PO X1 ONE Stop: 12/07/24 14:51 Last Admin: 12/07/24 14:53 Dose: 1,000 mg Documented By: VL Diphenhydramine HCl (Diphenhydramine 25 Mg Capsule) 50 mg PO X1 ONE Stop: 12/07/24 14:51 Last Admin: 12/07/24 14:54 Dose: 50 mg Documented By: VL Tylenol or Benadryl and 2 units packed RBC Consultations Consultation(s) initiated? (list below): No Diagnosis Recheck Differential Diagnosis: other (Anemia, history of pancreatic cancer, anemia of chronic disease) Most likely diagnosis given after review of the tests above:: Anemia, history of pancreatic cancer Admission Indicated Admission indicated?: not indicated Admission Request Was there a request for admission?: No Disposition Plan Disposition Plan: Discharge Discharge Attestation Discharge Attestation: The patient was given an opportunity to ask questions and understood the discharge instructions. Discharge instructions specifically effects, indications for sooner follow up or return to the emergency department, and the expected course of current diagnosis. Patient condition: Stable Discharge Plan Plan Patient Disposition: HOME (Self Care) Discharge Disposition comment: Stable Prescriptions/Referrals Referrals: No Primary/Family,Physician [Primary Care Provider] - In 1 week Problem List Clinical Impression: Anemia, History of pancreatic cancer Patient/Caregiver Discharge Instructions Discharge Activity: activity as tolerated Education Materials: Anemia Additional Instructions: Thank you for the opportunity for serving you today. You are stable for discharged . You are advised to: Follow-up with your PCP in 1 to 2 days Return to ED for worsening of symptoms Print Language: Mohawk Stand Alone Forms: [facility] Info., Patient Portal Info Letter NGHIA/LIZZY Supervising Physician NGHIA/LIZZY Supervising Physician: MD Wu
[2024-12-07 13:26] LABS: Basophils # (Auto) 0.0 Thou/mm3 (0.0-0.2); Basophils % (Auto) 0 % (0-2.5); Eosinophils # (Auto) 0.0 Thou/mm3 (0.0-0.5); Eosinophils % (Auto) 0 % (0-10); Immature Granulocytes Auto 0.03 Thou/mm3 (0.00-0.00); Lymphocytes # (Auto) 0.6 Thou/mm3 (1.0-4.8); Lymphocytes % (Auto) 27 % (10-50); Mean Corpuscular HGB Conc 33.5 g/dl (31.0-37.0); Mean Corpuscular Hemoglobin 30.2 pg (25.0-35.0); Mean Corpuscular Volume 90 fL (80-100); Monocytes # (Auto) 0.2 Thou/mm3 (0.0-0.8); Monocytes % (Auto) 7 % (0-12); Neutrophils # (Auto) 1.4 Thou/mm3 (1.8-7.7); Neutrophils % (Auto) 64 % (37-80); Nucleated Red Blood Cell # 0.00 Thou/mm3 (0.00-0.00); Nucleated Red Blood Cell % 0 /100 WBC (0); Platelet Count 136 Thou/mm3 (140-440); RDW Standard Deviation 49.0 fL (35.1-43.9); Red Blood Count 1.99 Miln/mm3 (4.50-5.90)
[2024-12-07 13:35] LABS: INR 1.2 (0.9-1.3); Prothrombin Time 12.5 Seconds (9.0-12.2)
[2024-12-07 13:43] LABS: White Blood Count 2.2 Thou/mm3 (3.8-10.6)
[2024-12-07 13:46] LABS: Hematocrit 17.9 % (41.0-53.0); Hemoglobin 6.0 g/dL (13.5-16.0)
[2024-12-07 13:49] LABS: Alanine Aminotransferase < 7 U/L (10-49); Albumin, Serum 3.7 gm/dL (3.5-5.0); Albumin/Globulin Ratio 1.2 (1.2-2.2); Alkaline Phosphatase 203 U/L (46-116); Anion Gap 4 (7-16); Aspartate Amino Transferase < 10 U/L (0-34); BUN/Creatinine Ratio 16 Ratio (12-20); Bilirubin,Total 0.6 mg/dL (0.3-1.2); Blood Urea Nitrogen 13 mg/dL (9-23); Calcium 8.6 mg/dL (8.3-10.6); Calcium (Corrected) 8.8 mg/dL (8.5-10.1); Carbon Dioxide 28.9 mMol/L (20.0-31.0); Chloride 100 mMol/L (98-107); Creatinine (Component) 0.8 mg/dL (0.6-1.3); Estimated Creatinine Clearance 134.5 mL/min (>60); Globulin 3.2 gm/dL (2.3-3.5); Glucose 127 mg/dL (74-106); Osmolality,Calculated 268 (275-295); Potassium 4.4 mMol/L (3.4-5.1); Sodium 133 mMol/L (136-145); Total Protein 6.9 gm/dL (5.7-8.2); eGFR > 60 See Note
[2024-12-07] MEDS: ACETAMINOPHEN 500 MG TABLET 1000 MG PO (14:53)
== END 2024-12-07 20:22 | disposition home or self-care (01) ==
PROVIDERS: Nurse Practitioner Family; Emergency Provider Family Medicine
DX: D64.9 Anemia, unspecified (principal); C25.9 Malignant neoplasm of pancreas, unspecified; C79.52 Secondary malignant neoplasm of bone marrow
CPT/HCPCS: 36415; 36430; 80053; 81001; 85025; 85610; 86850; 86900; 86901; 86923; 93005; 99283; P9016; A9270

== ENCOUNTER 2024-12-19 18:44 | Emergency (ER) | payer OTHER, SELFPAY ==
[2024-12-19 18:45] VITALS: BMI 29.2
[2024-12-19 19:16] VITALS: BP 115/63; PULSE 97; RESP 20; TEMP 37.9; O2SAT 100
--- NOTE | 2024-12-19 20:35 | EDNOTE_ITS ---
ED Recheck Abnl Lab Rx-RME/HPI General Chief Complaint: General Adult/Misc Complain Stated Complaint: HGB 4.7; NEEDS BLOOD TRANSFUSION Time Seen by Provider: 12/19/24 19:25 Arrival date/time: 12/19/24 18:44 59M with history of pancreatic cancer with meds to bone marrow presents to ED with generalized weakness. Patient has been here multiple times recently for repeat transfusions. Patient was recently started on Epo. Patient confirms no bloody emesis or stool (patient states he's had a lot of fingers up his behind. ). Patient is on a FQ prophylactically. Limitations: no limitations Related Data Previous Rx's ?Medication ?Instructions ?Recorded cephalexin 750 mg capsule 750 mg PO TID 14 days #42 ca ps 12/20/24 Allergies Allergy/AdvReac Type Severity Reaction Status Date / Time hydrocodone Allergy Mild Nausea Verified 12/19/24 18:47 Penicillins Allergy Verified 12/19/24 18:47 Review of Systems Review of Systems Systems Reviewed: All systems reviewed, normal except as documented Constitutional Constitutional: Reports system reviewed and no additional complaints, except as documented, Reports as per HPI, Reports fatigue, Denies fever(s) and Denies headache(s) ENT Ears, Nose, Mouth, and Throat: Denies disequilibrium and Denies headache(s) Cardiovascular Cardiovascular: Reports system reviewed and no additional complaints, except as documented, Denies chest pain and Denies dyspnea Respiratory Respiratory: Reports system reviewed and no additional complaints, except as documented, Denies cough and Denies dyspnea Gastrointestinal Gastrointestinal: Reports system reviewed and no additional complaints, except as documented, Denies abdominal pain, Denies nausea and Denies vomiting Neurologic Neurologic: Reports system reviewed and no additional complaints, except as documented, Denies confusion, Denies disequilibrium and Denies headache(s) Psychiatric Psychiatric: Denies confusion Endocrine Endocrine: Reports fatigue Past Medical History Past Medical History CARDIAC: Negative Congestive Heart Failure RESPIRATORY: Negative Chronic Obstructive Pulmonary Disease (COPD) GENITOURINARY: Negative Renal Disease ENDOCRINE: Negative Diabetes Mellitus Type 1 or Diabetes Mellitus Type 2 OTHER HISTORY: Positive Cancer Social History SMOKING STATUS: Never smoker SUBSTANCE USE: does not use ED Exam General Limitations: Present no limitations General appearance: Present alert and in no apparent distress Head Head exam: Present atraumatic Eye Eye exam: Present normal appearance, PERRL and EOMI ENT ENT exam: Present normal exam, normal oropharynx and mucous membranes moist Neck Neck exam: Present normal inspection, full ROM and trachea midline Chest Chest inspection: Present normal inspection and symmetric chest wall rise Respiratory Respiratory exam: Present normal lung sounds bilaterally Cardiovascular Cardiovascular exam: Present regular rate, normal rhythm and normal heart sounds Abdominal Exam Abdominal exam: Present soft and normal bowel sounds Extremities Exam Extremities exam: Present normal inspection and full ROM Back Exam Back exam: Present normal inspection and full ROM Neurological Exam Neurological exam: Present alert, oriented X3 and CN II-XII intact Psychiatric Psychiatric exam: Present normal affect and normal mood Skin Skin exam: Present warm, dry, intact and normal color Course Quality Measures none Orders Category Date Time Status Bedside COVID-19 Antigen Test NOW Care 12/19/24 21:08 Completed Bedside Influenza A&B Antigen Test NOW Care 12/19/24 21:08 Completed Insert IV NOW Care 12/19/24 19:26 Completed Blood Culture (Lab) Stat Lab 12/19/24 21:31 Received CBC Stat Lab 12/19/24 21:31 Completed CMP [Comprehensive Metabolic Panel] Stat Lab 12/19/24 21:31 Completed FFP [Fresh Frozen Plasma] Stat Lab 12/19/24 21:31 Results Iron Panel Stat Lab 12/19/24 21:31 Completed Lactate (Lactic Acid) Stat Lab 12/19/24 21:31 Completed Path Review Blood Smear Stat Lab 12/19/24 21:31 Completed Procalcitonin Stat Lab 12/19/24 21:31 Completed Type and Screen Stat Lab 12/19/24 21:31 Results prbc [Red Blood Cells] Stat Lab 12/19/24 21:31 Results Acetaminophen Tab [Tylenol ES Tab] Med 12/19/24 21:12 Discontinued 1,000 mg PO X1 ONE Acetaminophen Tab [Tylenol Tab] Med 12/20/24 02:22 Discontinued 650 mg PO Q4H PRN DiphenhydrAMINE INJ [Benadryl Inj] Med 12/19/24 21:12 Discontinued 25 mg IVP X1 ONE HYDROmorphone INJ [Dilaudid Inj] Med 12/20/24 00:06 Discontinued 1 mg IVP Q2H PRN HYDROmorphone INJ [Dilaudid Inj] Med 12/19/24 20:04 Discontinued 1 mg IVP Q3H PRN ceFAZolin/D5W 2 GM IV [Ancef 2gm Ivpb] Med 12/20/24 04:00 Discontinued 2 g in 100 ml IV X1 ceFAZolin/D5W 2 GM IV [Ancef 2gm Ivpb] Med 12/19/24 20:03 Discontinued 2 gm in 100 ml IV X1 Vital Signs Vital signs: Vital Signs Temperature 100.3 F 12/19/24 19:16 Pulse Rate 97 12/19/24 19:16 Respiratory Rate 20 12/19/24 19:16 Blood Pressure 115/63 12/19/24 19:16 Pulse Oximetry (%) 100 12/19/24 19:16 Oxygen Delivery Method Room Air 12/19/24 19:16 O2 at 100% on RA and WNLs Recheck / Abnormal Lab / Rx MDM Narrative MDM Narrative:: 59M with history of pancreatic cancer with meds to bone marrow presents to ED with generalized weakness. Patient has been here multiple times recently for repeat transfusions. Patient was recently started on Epo. Patient confirms no bloody emesis or stool (patient states he's had a lot of fingers up his behind. ). Patient is on a FQ prophylactically. Physical exam reveals pale-appearing individual. Patient is mildly febrile, but does not appear toxic. Normal WOB. Review of previous blood culture from 3 weeks ago showed E. coli in both bottles sensitive to Ancef and most other cephalosporins. However, it is resistant to FQs, which would explain why patient has a low-grade fever. HgB around 5. Will give 3 units. Patient does technically meet criteria for neutropenic fever. However, patient confirms he's not on chemo and has had this fever on and off for the past few weeks. Patient does not want to be admitted. CMP unremarkable. Procal/lactate normal. Given the positive E.coli blood culture that is susceptible to Ancef, will discharge with Keflex and have this managed outpatient. Patient is agreeable and prefers this as he doesn't want to catch a nosocomial infection in the inpatient units. Patient data External records reviewed:: [facility] previous records Clinical information provided by:: patient Social determinants that could affect healthcare access:: none Patient has the following chronic illnesses:: pancreatic cancer How is presenting disease/condition affected by chronic disease/condition?: exacerbated by Evaluation data The following diagnostics were reviewed and interpreted by me:: lab results Lab and/or radiology exams considered but not ordered:: ordered Interpretation Summary: above Medications / Prescriptions Medications or Prescriptions considered but not ordered:: ordered Medication administrations:: Medication Administration History Discontinued Medications Acetaminophen (Acetaminophen 500 Mg Tablet) 1,000 mg PO X1 ONE Stop: 12/19/24 21:13 Last Admin: 12/19/24 21:46 Dose: 1,000 mg Documented By: TERRENCE Acetaminophen (Acetaminophen 325 Mg Tablet) 650 mg PO Q4H PRN PRN Reason: Fever > 100.4 Stop: 01/19/25 02:21 Last Admin: 12/20/24 03:03 Dose: 650 mg Documented By: TERRENCE Diphenhydramine HCl (Diphenhydramine Inj 50 Mg/Ml Vial) 25 mg IVP X1 ONE Stop: 12/19/24 21:13 Last Admin: 12/20/24 00:12 Dose: 25 mg Documented By: TERRENCE Hydromorphone HCl (Hydromorphone Inj 2 Mg/Ml Vial) 1 mg IVP Q3H PRN PRN Reason: pain Stop: 12/24/24 20:03 Last Admin: 12/19/24 21:46 Dose: 1 mg Documented By: TERRENCE Hydromorphone HCl (Hydromorphone Inj 2 Mg/Ml Vial) 1 mg IVP Q2H PRN PRN Reason: pain Stop: 12/24/24 20:03 Last Admin: 12/20/24 09:27 Dose: 1 mg Documented By: Admin: 12/20/24 07:25 Dose: 1 mg Documented By: Admin: 12/20/24 05:04 Dose: 1 mg Documented By: Admin: 12/20/24 03:03 Dose: 1 mg Documented By: Admin: 12/20/24 00:23 Dose: 1 mg Documented By: TERRENCE Cefazolin Sodium (Ancef 2gm Ivpb) 2 gm in 100 mls @ 200 mls/hr IV X1 ONE Stop: 12/19/24 20:32 Last Infusion: 12/19/24 22:53 Dose: Infused Documented By: Admin: 12/19/24 21:47 Dose: 200 mls/hr Documented By: TERRENCE Cefazolin Sodium (Ancef 2gm Ivpb) 2 g in 100 mls @ 200 mls/hr IV X1 ONE Stop: 12/20/24 04:29 Last Infusion: 12/20/24 06:28 Dose: Infused Documented By: Admin: 12/20/24 05:26 Dose: 200 mls/hr Documented By: TERRENCE above Consultations Consultation(s) initiated? (list below): No Diagnosis Recheck Differential Diagnosis: encounter for medication refill, encounter for wound recheck, encounter for recheck of burn, encounter for removal of sutures, warfarin-induced coagulopathy and other (anemia, blood culture positive) Most likely diagnosis given after review of the tests above:: anemia, blood culture positive Admission Indicated Admission indicated?: not indicated Admission Request Was there a request for admission?: No Disposition Plan Disposition Plan: Discharge Discharge Attestation Discharge Attestation: The patient and all family members were given an opportunity to ask questions and understood the discharge instructions. Discharge instructions specifically effects, indications for sooner follow up or return to the emergency department, and the expected course of current diagnosis. Patient condition: Stable Discharge Plan Plan Patient Disposition: HOME (Self Care) Discharge Disposition comment: Stable Patient condition on transfer: Stable Prescriptions/Referrals Prescriptions/Med Rec: New cephalexin 750 mg capsule 750 mg PO TID 14 Days Qty: 42 0RF Referrals: No Primary/Family,Physician [Primary Care Provider] - In 1 week Problem List Clinical Impression: Anemia, Blood culture positive Patient/Caregiver Discharge Instructions Education Materials: Anemia, ED Bacteremia, Suspected (Adult) Additional Instructions: Please follow-up with PCP within 24-48 hours and return immediately if symptoms worsen. Can continue to take the previously prescribed ABX as prophylaxis. However, make sure to take the new ABX as well. Print Language: Romansh Stand Alone Forms: Patient Portal Info Letter NGHIA/LIZZY Supervising Physician GAEL Supervising Physician: Dr. Perez
[2024-12-19 21:06] VITALS: BP 126/74; PULSE 89; RESP 16; TEMP 38.3; O2SAT 100
[2024-12-19] MEDS: ACETAMINOPHEN 500 MG TABLET 1000 MG PO (21:46)
[2024-12-19] MEDS: HYDROmorphone INJ 2 MG/ML VIAL 1 MG IVP (21:46)
[2024-12-19] MEDS: ceFAZolin/D5W 2 GM IV 2 GM/100 ML BAG IV (21:47)
[2024-12-19 21:49] LABS: Lactate (Lactic Acid) 0.7 mMol/L (0.4-2.0)
[2024-12-19 21:56] LABS: Basophils # (Auto) 0.0 Thou/mm3 (0.0-0.2); Basophils % (Auto) 0 % (0-2.5); Immature Granulocytes Auto 0.02 Thou/mm3 (0.00-0.00); Mean Corpuscular Hemoglobin 29.7 pg (25.0-35.0); Monocytes # (Auto) 0.1 Thou/mm3 (0.0-0.8); Nucleated Red Blood Cell # 0.00 Thou/mm3 (0.00-0.00); Nucleated Red Blood Cell % 0 /100 WBC (0); RDW Standard Deviation 46.5 fL (35.1-43.9)
[2024-12-19 22:12] LABS: Eosinophils # (Auto) 0.0 Thou/mm3 (0.0-0.5); Eosinophils % (Auto) 1 % (0-10); Lymphocytes # (Auto) 0.7 Thou/mm3 (1.0-4.8); Lymphocytes % (Auto) 53 % (10-50); Mean Corpuscular HGB Conc 33.8 g/dl (31.0-37.0); Mean Corpuscular Volume 88 fL (80-100); Monocytes % (Auto) 10 % (0-12); Neutrophils # (Auto) 0.5 Thou/mm3 (1.8-7.7); Neutrophils % (Auto) 35 % (37-80); Platelet Count 155 Thou/mm3 (140-440); Red Blood Count 1.82 Miln/mm3 (4.50-5.90)
[2024-12-19 22:19] LABS: Alanine Aminotransferase 10 U/L (10-49); Albumin, Serum 3.8 gm/dL (3.4-4.8); Albumin/Globulin Ratio 1.3 (1.2-2.2); Alkaline Phosphatase 246 U/L (46-116); Anion Gap 7 (7-16); Aspartate Amino Transferase < 8 U/L (0-34); BUN/Creatinine Ratio 19 Ratio (12-20); Bilirubin,Total 0.7 mg/dL (0.3-1.2); Blood Urea Nitrogen 13 mg/dL (9-23); Calcium 9.3 mg/dL (8.3-10.6); Calcium (Corrected) 9.5 mg/dL (8.5-10.1); Carbon Dioxide 27.8 mMol/L (20.0-31.0); Chloride 100 mMol/L (98-107); Creatinine (Component) 0.7 mg/dL (0.6-1.3); Estimated Creatinine Clearance 151.8 mL/min (>60); Globulin 3.0 gm/dL (2.3-3.5); Glucose 145 mg/dL (74-106); Osmolality,Calculated 273 (275-295); Potassium 4.2 mMol/L (3.4-5.1); Procalcitonin 0.11 ng/ml (0.0-0.49); Sodium 135 mMol/L (136-145); Total Protein 6.8 gm/dL (5.7-8.2); eGFR > 60 See Note
[2024-12-19 22:43] LABS: Iron 71 mcg/dL (65-175); Percent Iron Saturation 38 % (20-55); Total Iron Binding Capacity 185 mcg/dL (250-425); Unsaturated Iron Binding 114 (225-295)
[2024-12-19 23:26] LABS: White Blood Count 1.3 Thou/mm3 (3.8-10.6)
[2024-12-19 23:27] LABS: Hematocrit 16.0 % (41.0-53.0); Hemoglobin 5.4 g/dL (13.5-16.0)
[2024-12-20] VITALS (16 sets, daily range): BP systolic 99–145; BP diastolic 43–73; PULSE 69–100; RESP 15–18; TEMP 36.8–38.8; O2SAT 93–100
[2024-12-20] MEDS: HYDROmorphone INJ 2 MG/ML VIAL 1 MG IVP ×5 (00:23→09:27)
[2024-12-20 01:30] LABS: Path Review Blood Smear Sent to Pathologist
[2024-12-20] MEDS: ACETAMINOPHEN 325 MG TABLET 650 MG PO (03:03)
[2024-12-20] MEDS: ceFAZolin/D5W 2 GM IV 2 G/100 ML BAG IV (05:26)
== END 2024-12-20 09:57 | disposition home or self-care (01) ==
PROVIDERS: Physician Assistant; Emergency Provider Emergency Medicine
DX: D64.9 Anemia, unspecified (principal)
CPT/HCPCS: 36415; 36430; 80053; 83540; 83550; 83605; 84145; 85025; 86850; 86900; 86901; 86923; 86927; 87040; 87077; 87186; 87400; 87811; 96365; 96366; 96375; 96376; 99284; J0689; J1171; J1200; P9016; A9270

== ENCOUNTER 2025-01-08 08:51 | Emergency (ER) | payer OTHER, SELFPAY ==
[2025-01-08 08:52] VITALS: BMI 28.5
[2025-01-08 09:22] VITALS: BP 128/80; PULSE 74; RESP 18; TEMP 37; O2SAT 98
--- NOTE | 2025-01-08 09:25 | EDNOTE_ITS ---
<Statement entered by Suzanne Boyer MD - 01/20/25 11:17> As co-signing physician, I was present and available for consult prn. I concur with the plan and care as documented by the midlevel provider. ED General RME/HPI General Chief complaint: General Adult/Misc Complain Stated complaint: WANTS PAIN MED PRESCRIPTION Time Seen by Provider: 01/08/25 09:01 Source: patient Arrival date/time: 01/08/25 08:51 59-year-old male with a history of pancreatic cancer presents to the emergency room with a chief complaint of 10 out of 10 pain. Patient states his left his pain medication pills in a hotel room and he is having breakthrough pain. Patient denies any other signs or symptoms. Mode of arrival: ambulatory Limitations: no limitations Related Data Allergies Allergy/AdvReac Type Severity Reaction Status Date / Time hydrocodone Allergy Severe Nausea Verified 01/08/25 08:54 Penicillins Allergy Severe Anaphylaxis Verified 01/08/25 08:54 Review of Systems Review of Systems Systems Reviewed: All systems reviewed, normal except as documented Constitutional Constitutional: Reports system reviewed and no additional complaints, except as documented, Denies fatigue, Denies fever(s), Denies headache(s) and Denies weakness Eyes Eyes: Reports system reviewed and no additional complaints, except as documented, Denies blurry vision and Denies change in vision ENT Ears, Nose, Mouth, and Throat: Reports system reviewed and no additional complaints, except as documented, Denies otalgia, Denies headache(s), Denies nasal congestion, Denies throat swelling and Denies vertigo Cardiovascular Cardiovascular: Reports system reviewed and no additional complaints, except as documented, Denies chest pain, Denies dyspnea and Denies dyspnea on exertion Respiratory Respiratory: Reports system reviewed and no additional complaints, except as documented, Denies chest congestion, Denies cough, Denies dyspnea, Denies dyspnea on exertion and Denies wheezing Gastrointestinal Gastrointestinal: Reports system reviewed and no additional complaints, except as documented, Denies abdominal pain, Denies cramping, Denies nausea and Denies vomiting Genitourinary Genitourinary: Reports system reviewed and no additional complaints, except as documented, Denies dysuria and Denies hematuria Musculoskeletal Musculoskeletal: Reports system reviewed and no additional complaints, except as documented and Denies back pain Integumentary/Breasts Skin/Breast: Reports system reviewed and no additional complaints, except as documented and Denies wounds Neurologic Neurologic: Reports system reviewed and no additional complaints, except as documented, Denies confusion, Denies headache(s), Denies lack of coordination, Denies vertigo and Denies weakness Psychiatric Psychiatric: Reports system reviewed and no additional complaints, except as documented, Denies anxiety, Denies confusion, Denies depression, Denies paranoia, Denies suicidal ideation and Denies tactile hallucinations Endocrine Endocrine: Reports system reviewed and no additional complaints, except as documented and Denies fatigue Hematologic/Lymphatic Hematologic/Lymphatic: Reports system reviewed and no additional complaints, except as documented and Denies lymphadenopathy Allergic/Immunologic Allergic/Immunologic: Reports system reviewed and no additional complaints, except as documented, Denies throat swelling, Denies urticaria and Denies wheezing Past Medical History Past Medical History CARDIAC: Negative Congestive Heart Failure RESPIRATORY: Negative Chronic Obstructive Pulmonary Disease (COPD) GENITOURINARY: Negative Renal Disease ENDOCRINE: Negative Diabetes Mellitus Type 1 or Diabetes Mellitus Type 2 OTHER HISTORY: Positive Cancer Social History SMOKING STATUS: Never smoker SUBSTANCE USE: does not use ED Exam General Limitations: Present no limitations General appearance: Present alert and in no apparent distress Head Head exam: Present atraumatic Eye Eye exam: Present normal appearance, PERRL and EOMI ENT ENT exam: Present normal exam, normal oropharynx and mucous membranes moist Neck Neck exam: Present normal inspection, full ROM and trachea midline Chest Chest inspection: Present normal inspection and symmetric chest wall rise Respiratory Respiratory exam: Present normal lung sounds bilaterally Cardiovascular Cardiovascular exam: Present regular rate, normal rhythm and normal heart sounds Abdominal Exam Abdominal exam: Present soft and normal bowel sounds Extremities Exam Extremities exam: Present normal inspection and full ROM Back Exam Back exam: Present normal inspection and full ROM Neurological Exam Neurological exam: Present alert, oriented X3 and CN II-XII intact Psychiatric Psychiatric exam: Present normal affect and normal mood Skin Skin exam: Present warm, dry, intact and normal color Course Quality Measures none Orders Category Date Time Status Morphine Inj Med 01/08/25 09:25 Discontinued 5 mg IM X1 ONE Vital Signs Vital signs: Vital Signs Temperature 98.6 F 01/08/25 09:22 Pulse Rate 74 01/08/25 09:22 Respiratory Rate 18 01/08/25 09:22 Blood Pressure 128/80 01/08/25 09:22 Pulse Oximetry (%) 98 01/08/25 09:22 Oxygen Delivery Method Room Air 01/08/25 09:22 Discharge Plan Plan Patient Disposition: HOME (Self Care) Discharge Disposition comment: Stable Problem List Clinical Impression: Cancer-related breakthrough pain Patient/Caregiver Discharge Instructions Education Materials: ED Chronic Pain Additional Instructions: Please follow-up with your primary care provider in the next 24 to 48 hours For any evidence of worsening signs or symptoms return to the emergency room immediately Print Language: Nepali Stand Alone Forms: [employer] Info., Patient Portal Info Letter PA/LIZZY Supervising Physician PA/LIZZY Supervising Physician: Dr. BOYER [facility] Narrative [facility] hospital course: 59-year-old male with a history of pancreatic cancer presents to the emergency room with a chief complaint of 10 out of 10 pain. Patient states his left his pain medication pills in a hotel room and he is having breakthrough pain. Patient denies any other signs or symptoms. Patient is hemodynamically stable and in no apparent distress. Patient denies any other signs and symptoms and states he is only here to manage his chronic pain due to his cancer. Patient states he has been traveling and his left his pain medication in the hotel. Patient states he has been without pain medication for the last 2 days and normally takes high doses of morphine. I gave the patient a shot of morphine which improved the symptoms. The patient was educated to follow-up with his primary care provider tomorrow morning. Patient agreed with the plan and was discharged Patient was discharged and educated to follow-up with primary care provider in the next 24 to 48 hours and return to the emergency room for any evidence of worsening signs or symptoms Clinical Information Provided by none Medical Records Reviewed None Meds/Rx Considered, not Ordered None Labs/Rad/Tests considered, not Ordered None Chronic Illness/Social Conditions which may negatively complicate care or outcome(s)-explain: None or not applicable EKG EKG not done Lab Interpretation Labs: none Imaging Imaging interpretation: none Medication Administration(s) Medication Administration History Discontinued Medications Morphine Sulfate (Morphine Sulf Inj 10 Mg/Ml Vial) 5 mg IM X1 ONE Stop: 01/08/25 09:26 Last Admin: 01/08/25 09:41 Dose: 5 mg Documented By: OA Diagnosis Differential diagnosis: Cancer-related breakthrough pain Most likely dx, and/or detailed dx discussion: Cancer-related breakthrough pain Dispositon Disposition: Discharge Home
[2025-01-08] MEDS: MORPHINE SULF INJ 10 MG/ML VIAL 5 MG IM (09:41)
== END 2025-01-08 09:50 | disposition home or self-care (01) ==
LOC: SERX 09:46
PROVIDERS: Emergency Provider Emergency Medicine; PCP Emergency Medicine
DX: G89.3 Neoplasm related pain (acute) (chronic) (principal); C25.9 Malignant neoplasm of pancreas, unspecified
CPT/HCPCS: 96372; 99283; J2270

== ENCOUNTER 2025-01-09 20:45 | Emergency (ER) | payer OTHER, SELFPAY ==
[2025-01-09 20:47] VITALS: BMI 28.5
[2025-01-09 21:00] VITALS: BP 146/79; PULSE 87; RESP 19; TEMP 36.9; O2SAT 99
--- NOTE | 2025-01-09 21:37 | EDNOTE_ITS ---
ED Recheck Abnl Lab Rx-RME/HPI General Chief Complaint: General Adult/Misc Complain Stated Complaint: NEEDS PAIN SHOT, HX OF CANCERQ Time Seen by Provider: 01/09/25 21:30 Arrival date/time: 01/09/25 20:45 59M with history of pancreatic cancer with meds to bone marrow presents to ED with needing pain meds because he left his meds in [place]. Patient would like morphine. Limitations: no limitations Related Data Allergies Allergy/AdvReac Type Severity Reaction Status Date / Time hydrocodone Allergy Severe Nausea Verified 01/09/25 20:47 Penicillins Allergy Severe Anaphylaxis Verified 01/09/25 20:47 Review of Systems Review of Systems Systems Reviewed: All systems reviewed, normal except as documented Constitutional Constitutional: Reports system reviewed and no additional complaints, except as documented, Denies fever(s) and Denies headache(s) ENT Ears, Nose, Mouth, and Throat: Denies disequilibrium and Denies headache(s) Cardiovascular Cardiovascular: Reports system reviewed and no additional complaints, except as documented, Denies chest pain and Denies dyspnea Respiratory Respiratory: Reports system reviewed and no additional complaints, except as documented, Denies cough and Denies dyspnea Gastrointestinal Gastrointestinal: Reports system reviewed and no additional complaints, except as documented, Denies abdominal pain, Denies nausea and Denies vomiting Neurologic Neurologic: Reports system reviewed and no additional complaints, except as documented, Denies confusion, Denies disequilibrium and Denies headache(s) Psychiatric Psychiatric: Denies confusion Past Medical History Past Medical History CARDIAC: Negative Congestive Heart Failure RESPIRATORY: Negative Chronic Obstructive Pulmonary Disease (COPD) GENITOURINARY: Negative Renal Disease ENDOCRINE: Negative Diabetes Mellitus Type 1 or Diabetes Mellitus Type 2 OTHER HISTORY: Positive Cancer Social History SMOKING STATUS: Never smoker SUBSTANCE USE: does not use ED Exam General Limitations: Present no limitations General appearance: Present alert and in no apparent distress Head Head exam: Present atraumatic Eye Eye exam: Present normal appearance, PERRL and EOMI ENT ENT exam: Present normal exam, normal oropharynx and mucous membranes moist Neck Neck exam: Present normal inspection, full ROM and trachea midline Chest Chest inspection: Present normal inspection and symmetric chest wall rise Respiratory Respiratory exam: Present normal lung sounds bilaterally Cardiovascular Cardiovascular exam: Present regular rate, normal rhythm and normal heart sounds Abdominal Exam Abdominal exam: Present soft and normal bowel sounds Extremities Exam Extremities exam: Present normal inspection and full ROM Back Exam Back exam: Present normal inspection and full ROM Neurological Exam Neurological exam: Present alert, oriented X3 and CN II-XII intact Psychiatric Psychiatric exam: Present normal affect and normal mood Skin Skin exam: Present warm, dry, intact and normal color Course Quality Measures none Orders Category Date Time Status Morphine Oral LIQUID Med 01/09/25 21:31 Discontinued 10 mg PO X1 ONE Vital Signs Vital signs: Vital Signs Temperature 98.4 F 01/09/25 21:00 Pulse Rate 87 01/09/25 21:00 Respiratory Rate 19 01/09/25 21:00 Blood Pressure 146/79 H 01/09/25 21:00 Pulse Oximetry (%) 99 01/09/25 21:00 Oxygen Delivery Method Room Air 01/09/25 21:00 O2 at 99% on RA and WNLs Recheck / Abnormal Lab / Rx MDM Narrative MDM Narrative:: 59M with history of pancreatic cancer with meds to bone marrow presents to ED with needing pain meds because he left his meds in [place]. Patient would like morphine. Physical exam reveals male in no distress. Patient is afebrile, calm, and alert. Meds and marriage and family counselor given. Patient data External records reviewed:: [facility] previous records Clinical information provided by:: patient Social determinants that could affect healthcare access:: none Patient has the following chronic illnesses:: pancreatic cancer with meds to bone marrow How is presenting disease/condition affected by chronic disease/condition?: caused by Evaluation data The following diagnostics were reviewed and interpreted by me:: other (specify) (none) Lab and/or radiology exams considered but not ordered:: not ordered Interpretation Summary: n/a Medications / Prescriptions Medications or Prescriptions considered but not ordered:: ordered Medication administrations:: Medication Administration History Discontinued Medications Morphine Sulfate (Morphine Sulf Liqd 10 Mg/5 Ml Udc) 10 mg PO X1 ONE Stop: 01/09/25 21:32 above Consultations Consultation(s) initiated? (list below): No Diagnosis Recheck Differential Diagnosis: encounter for medication refill, encounter for wound recheck, encounter for recheck of burn, encounter for removal of sutures, warfarin-induced coagulopathy and other (cancer-related breakthrough pain) Most likely diagnosis given after review of the tests above:: cancer-related breakthrough pain Admission Indicated Admission indicated?: not indicated Admission Request Was there a request for admission?: No Disposition Plan Disposition Plan: Discharge Discharge Attestation Discharge Attestation: The patient and all family members were given an opportunity to ask questions and understood the discharge instructions. Discharge instructions specifically effects, indications for sooner follow up or return to the emergency department, and the expected course of current diagnosis. Patient condition: Stable Discharge Plan Plan Patient Disposition: HOME (Self Care) Discharge Disposition comment: Stable Problem List Clinical Impression: Cancer-related breakthrough pain Patient/Caregiver Discharge Instructions Education Materials: ED Chronic Pain Additional Instructions: Please follow-up with PCP within 24-48 hours and return immediately if symptoms worsen. Print Language: Indonesian Stand Alone Forms: Patient Portal Info Letter NGHIA/LIZZY Supervising Physician NGHIA/LIZZY Supervising Physician: Dr. Najera
[2025-01-09] MEDS: MORPHINE SULF LIQD 10 MG/5 ML UDC PO (21:51)
== END 2025-01-09 21:54 | disposition home or self-care (01) ==
LOC: SERX 21:41
PROVIDERS: Emergency Provider Emergency Medicine
DX: G89.3 Neoplasm related pain (acute) (chronic) (principal); C25.9 Malignant neoplasm of pancreas, unspecified
CPT/HCPCS: 99282; A9270

== ENCOUNTER 2025-01-11 00:05 | Emergency (ER) | payer OTHER, SELFPAY ==
[2025-01-11] VITALS (14 sets, daily range): BP systolic 104–125; BP diastolic 58–85; PULSE 86–113; RESP 14–20; TEMP 36.7–38.8; O2SAT 96–100; BMI 28.5
--- NOTE | 2025-01-11 00:11 | PD.EDABDPN ---
ED Abdominal Pain RME/HPI General Chief Complaint: Abdominal Pain Stated complaint: ABDOMINAL PAIN Time seen by provider: 01/11/25 00:26 Arrival date/time: 01/11/25 00:05 RME / HPI RME / HPI narrative: See MDM for Dr. Najera's HPI documentation. Related Data Allergies Allergy/AdvReac Type Severity Reaction Status Date / Time hydrocodone Allergy Severe Nausea Verified 01/09/25 20:47 Penicillins Allergy Severe Anaphylaxis Verified 01/09/25 20:47 Review of Systems Review of Systems Systems Reviewed: All systems reviewed, normal except as documented ED Exam Narrative Physical exam: See MDM for Dr. Najera's physical exam documentation. Course Quality Measures none Orders Category Date Time Status Bedside COVID-19 Antigen Test NOW Care 01/11/25 00:12 Completed Bedside Influenza A&B Antigen Test NOW Care 01/11/25 00:12 Completed COVID-19 Screening Questionnaire NOW Care 01/11/25 09:[address] Screening NOW Care 01/11/25 00:15 Completed Decision to Admit X1 Care 01/11/25 09:18 Completed Saline [Insert IV] NOW Care 01/11/25 00:12 Completed Straight [In and Out Catheter] X1 Care 01/11/25 00:12 Completed Transfuse,blood/blood products NOW Care 01/11/25 01:34 Completed Consult to General Surgery Stat Cons 01/11/25 09:[address] chest abdomen pelvis w Stat Exams 01/11/25 00:15 Completed US abdomen limited Stat Exams 01/11/25 00:16 Completed XR chest 1V portable Stat Exams 01/11/25 00:15 Completed Amylase Stat Lab 01/11/25 00:56 Completed Beta Hydroxybutyrate Stat Lab 01/11/25 00:56 Completed Bilirubin,Direct Stat Lab 01/11/25 00:56 Completed Blood Culture (Lab) Stat Lab 01/11/25 00:56 Received CBC Stat Lab 01/11/25 00:56 Completed CMP [Comprehensive Metabolic Panel] Stat Lab 01/11/25 00:56 Completed CRP [C-Reactive Protein] Stat Lab 01/11/25 00:56 Completed ESR [Sed Rate (ESR)] Stat Lab 01/11/25 00:56 Completed Lactate (Lactic Acid) Stat Lab 01/11/25 00:56 Completed Lipase Stat Lab 01/11/25 00:56 Completed Magnesium Stat Lab 01/11/25 00:56 Completed PT [Prothrombin Time with INR] Stat Lab 01/11/25 00:56 Completed PTT [Partial Thromboplastin Time] Stat Lab 01/11/25 00:56 Completed Procalcitonin Stat Lab 01/11/25 00:56 Completed Type and Screen Stat Lab 01/11/25 02:10 Results UA, C/S IF [Urinalysis, C/S if Indicated] Stat Lab 01/11/25 02:47 Completed prbc [Red Blood Cells] Stat Lab 01/11/25 02:10 Results Acetaminophen Ivpb [Ofirmev Inj] Med 01/11/25 00:36 Discontinued 1,000 mg in 100 ml IV X1 Acetaminophen Tab [Tylenol Tab] Med 01/11/25 07:47 Discontinued 650 mg PO X1 ONE HYDROmorphone INJ [Dilaudid Inj] Med 01/11/25 08:44 Discontinued 0.5 mg IVP X1 ONE HYDROmorphone INJ [Dilaudid Inj] Med 01/11/25 00:14 Discontinued 1 mg IVP X1 ONE HYDROmorphone INJ [Dilaudid Inj] Med 01/11/25 02:40 Discontinued 2 mg .ROUTE .STK-MED ONE HYDROmorphone INJ [Dilaudid Inj] Med 01/11/25 02:40 Discontinued 2 mg IVP X1 ONE Ketorolac Inj [Toradol Inj] Med 01/11/25 00:36 Discontinued 30 mg IVP X1 ONE Levofloxacin/D5w 500 mg Ivpb [Levaquin Ivpb] Med 01/11/25 01:02 Discontinued 500 mg in 100 ml IV X1 Magnesium Sulfate 2 GM Ivpb [Magnesium Sulfate Ivpb] Med 01/11/25 05:07 Discontinued 2 gm in 50 ml IV X1 Ondansetron Inj [Zofran Inj] Med 01/11/25 00:14 Discontinued 4 mg IVP X1 ONE Ondansetron Inj [Zofran Inj] Med 01/11/25 08:44 Discontinued 4 mg IVP X1 ONE Sodium Chloride 0.9% 1000 ml [Ns] 1,000 ml Med 01/11/25 00:14 Discontinued IV 999 mls/hr cefTRIAXone/D5w 1gm IV premix [Rocephin/D5w 1gm IV Med 01/11/25 00:37 Discontinued premix] 50 ml IV X1 Vital Signs Vital signs: Vital Signs Temperature 100.4 F 01/11/25 00:17 Pulse Rate 106 H 01/11/25 00:17 Respiratory Rate 17 01/11/25 00:17 Blood Pressure 116/62 01/11/25 00:17 Pulse Oximetry (%) 96 01/11/25 00:17 Oxygen Delivery Method Room Air 01/11/25 00:17 Abdominal Pain MDM MDM Narrative MDM Narrative:: This section includes all my notes and documentations, including HPI, PE, and ED course. Bhupinder Najera MD HPI: 59yo male with a history of pancreatic CA BIBA here with abdominal pain that radiates to his back. Patient had his biliary tube replaced today in [place] then the pain started. Reports severe nausea. No vomiting. He also reports subjective fever and chills and bodyaches and malaise. No other complaints. ROS: All negative except as documented in HPI. Physical Exam: General: Alert and oriented. Appearance of malaise noted. Eyes: Conjunctivae and lids clear. ENT: No nasal congestion. Neck: Supple. Heart: RRR. Lungs: No respiratory distress. Good air movement. No rhonchi, wheezing, rales. Abdomen: Soft with severe tenderness, difficult to localize. Decreased bowel sounds. No distension. No rebound or guarding. Back: No CVA tenderness. Skin: Warm and dry. Neuro: Alert and oriented X 3. I reviewed EMS notes. I ordered diagnostic tests and: Dilaudid IV fluid Tylenol IV Toradol Zofran Levaquin Magnesium 2 units pRBCs At 6 AM on 01/11/2025, the care of the patient was transferred to Dr. Capellan. Bhupinder Najera MD Patient data External records reviewed:: [facility] previous records (Per chart review, patient was seen here on 01/09/25 for cancer-related breakthrough pain.) Clinical information provided by:: patient Social determinants that could affect healthcare access:: none Patient has the following chronic illnesses:: pancreatic CA How is presenting disease/condition affected by chronic disease/condition?: exacerbated by Evaluation data The following diagnostics were reviewed and interpreted by me:: lab results and radiology exam(s) Lab and/or radiology exams considered but not ordered:: none Interpretation Summary: Diagnostic tests are pending. Medications / Prescriptions Medications or Prescriptions considered but not ordered:: none Medication administrations:: Medication Administration History Discontinued Medications Acetaminophen (Acetaminophen 325 Mg Tablet) 650 mg PO X1 ONE Stop: 01/11/25 07:48 Last Admin: 01/11/25 08:21 Dose: 650 mg Documented By: URSULA Hydromorphone HCl (Hydromorphone Inj 2 Mg/Ml Vial) 1 mg IVP X1 ONE Stop: 01/11/25 00:15 Last Admin: 01/11/25 00:59 Dose: 1 mg Documented By: TOD Hydromorphone HCl (Hydromorphone Inj 2 Mg/Ml Vial) Confirm Administered Dose 2 mg .ROUTE .STK-MED ONE Stop: 01/11/25 02:41 Last Admin: 01/11/25 04:51 Dose: Not Given Documented By: TOD Non-Admin Reason: Duplicate Medication on eMAR Hydromorphone HCl (Hydromorphone Inj 2 Mg/Ml Vial) 2 mg IVP X1 ONE Stop: 01/11/25 02:41 Last Admin: 01/11/25 02:40 Dose: 2 mg Documented By: TOD Hydromorphone HCl (Hydromorphone Inj 2 Mg/Ml Vial) 0.5 mg IVP X1 ONE Stop: 01/11/25 08:45 Last Admin: 01/11/25 10:26 Dose: Not Given Documented By: URSULA Non-Admin Reason: Patient Refused Sodium Chloride (Ns) 1,000 mls @ 999 mls/hr IV .Q1H1M ONE Stop: 01/11/25 01:14 Last Infusion: 01/11/25 01:59 Dose: Infused Documented By: Admin: 01/11/25 00:58 Dose: 999 mls/hr Documented By: TOD Acetaminophen (Ofirmev Inj) 1,000 mg in 100 mls @ 250 mls/hr IV X1 ONE Stop: 01/11/25 00:59 Last Infusion: 01/11/25 01:46 Dose: Infused Documented By: Admin: 01/11/25 01:03 Dose: 250 mls/hr Documented By: TOD Ceftriaxone Sodium/Dextrose (Rocephin/D5w 1gm Iv Premix) 50 mls @ 100 mls/hr IV X1 ONE Stop: 01/11/25 01:06 Levofloxacin/Dextrose (Levaquin Ivpb) 500 mg in 100 mls @ 100 mls/hr IV X1 ONE Stop: 01/11/25 02:01 Last Infusion: 01/11/25 02:46 Dose: Infused Documented By: Admin: 01/11/25 01:46 Dose: 100 mls/hr Documented By: DT Magnesium Sulfate (Magnesium Sulfate Ivpb) 2 gm in 50 mls @ 25 mls/hr IV X1 ONE Stop: 01/11/25 07:06 Last Infusion: 01/11/25 08:45 Dose: Infused Documented By: Admin: 01/11/25 07:42 Dose: 25 mls/hr Documented By: URSULA Ketorolac Tromethamine (Ketorolac Inj 30 Mg/Ml Vial) 30 mg IVP X1 ONE Stop: 01/11/25 00:37 Last Admin: 01/11/25 01:03 Dose: 30 mg Documented By: TOD Ondansetron HCl (Ondansetron Inj 2 Mg/Ml Inj 2 Ml) 4 mg IVP X1 ONE; Protocol Stop: 01/11/25 00:15 Last Admin: 01/11/25 01:00 Dose: 4 mg Documented By: TOD Ondansetron HCl (Ondansetron Inj 2 Mg/Ml Inj 2 Ml) 4 mg IVP X1 ONE; Protocol Stop: 01/11/25 08:45 Last Admin: 01/11/25 10:27 Dose: Not Given Documented By: URSULA Non-Admin Reason: Patient Refused Dilaudid, IV fluid, Tylenol IV, Toradol, Zofran, Levaquin, Magnesium Consultations Consultation(s) initiated? (list below): No Diagnosis Differential diagnosis abdominal pain: acute appendicitis, calculus of kidney, constipation, diverticulitis, endometriosis, gastroenteritis, pancreatitis and small bowel obstruction Most likely diagnosis given after review of the tests above:: Absolute neutropenia Severe anemia Pancreatic cancer Abdominal pain Admission Indicated Admission indicated?: not indicated Explain why admission is indicated or not indicated:: Diagnostic tests are pending. Admission Request Was there a request for admission?: No Disposition Plan Disposition Plan: other (specify) (Signed out to Dr. Capellan at 6 AM.) Discharge Plan Plan Patient Disposition: Left Against Medical Advice Problem List Clinical Impression: Neutropenia, Severe anemia, Pancreatic cancer, Abdominal pain Patient/Caregiver Discharge Instructions Print Language: Malaysian
--- NOTE | 2025-01-11 00:15 | XR_ITS ---
Examination: AP chest single view Technique one AP portable semiupright chest single view Date and time: January 11, 2025 0116 hours INDICATIONS: Abdominal pain chest pain today. FINDINGS: Normal heart size. Lungs are clear. The osseous structures are intact. IMPRESSION: No active disease.
--- NOTE | 2025-01-11 00:15 | XR_ITS ---
Examination: CT chest with intravenous contrast CT abdomen with intravenous contrast CT pelvis with intravenous contrast 2-D coronal and sagittal reconstructions Time of exam: January 11, 2025, 0450 hrs., Comparison November 25, 2024. Indications: History biliary stent, abdominal pain post biliary tube insertion yesterday, shortness of breath chest pain CTDI: vol (mGy) : 10.3. DLP: (mGycm): 896. Technique: Multiple axial images of the chest, abdomen and pelvis with intravenous contrast, 3.0 mm slice thickness. Images obtained post intravenous injection Isovue 370 60 cc. 2-D sagittal and coronal reconstructions. Low dose protocols were performed. One or more of the following dose reduction techniques were used; automated exposure control, adjustment of the mA and/or KV according to patient size, use of iterative reconstruction technique. Findings: Multiple bilateral noncalcified pulmonary nodules, the largest in the right lung measuring up to 6 mm No thoracic aortic aneurysmal dilatation. Pulmonary artery segments are not enlarged. No pneumonia, pulmonary edema or pleural disease. Prominent splenomegaly. Multiple solid liver lesions, the largest in the right lobe liver 30 mm Splenomegaly Biliary stent satisfactory position Gallbladder wall thickening and edema Pneumobilia Mild dilatation pancreatic duct 4 mm Mild edema surrounding the pancreas. No bowel obstruction. 2 mm left renal calculus. Normal appendix No bowel obstruction Urinary bladder intact Mesenteric fat stranding Degenerative change in the lumbar spine Impression: Multiple noncalcified likely metastatic pulmonary nodules. No pneumonia, pulmonary edema. Hepatosplenomegaly. Hepatic metastases. Biliary stent satisfactory position. Acute cholecystitis. Mild pancreatitis. 2 mm left renal calculus. Normal appendix
--- NOTE | 2025-01-11 00:16 | XR_ITS ---
Examination: Abdomen sonogram, Limited Date and time of exam: January 11, 2025 0122 hours INDICATIONS: Right upper abdominal pain and nausea beginning several weeks ago Technique: Real-time keane scale transabdominal sonographic images of the upper abdomen obtained. Findings: Negative for gallstones Gallbladder wall is thickened 0.66 cm Common bile duct enlarged 0.70 cm no stones Pancreas obscured by bowel gas Hepatomegaly 22 cm no liver lesions Normal hepatopedal portal venous flow Patent IVC IMPRESSION: Findings consistent with acalculus cholecystitis Consider HIDA scan or MRCP follow-up
[2025-01-11] MEDS: SODIUM CHLORIDE 0.9% 1000 ML 1,000 ML 999 ML IV (00:58)
[2025-01-11] MEDS: HYDROmorphone INJ 2 MG/ML VIAL 1 MG IVP (00:59)
[2025-01-11] MEDS: ONDANSETRON INJ 2 MG/ML INJ 2 ML 4 MG IVP (01:00)
[2025-01-11] MEDS: ACETAMINOPHEN IVPB 1,000 MG/100 ML VIAL 250 MG IV (01:03)
[2025-01-11] MEDS: KETOROLAC INJ 30 MG/ML VIAL IVP (01:03)
[2025-01-11 01:10] LABS: Lactate (Lactic Acid) 0.9 mMol/L (0.4-2.0)
[2025-01-11 01:14] LABS: Basophils # (Auto) 0.0 Thou/mm3 (0.0-0.2); Basophils % (Auto) 1 % (0-2.5); Beta Hydroxybutyrate 0.2 mmol/L (<0.6); Eosinophils # (Auto) 0.0 Thou/mm3 (0.0-0.5); Eosinophils % (Auto) 0 % (0-10); Hematocrit 20.7 % (41.0-53.0); Immature Granulocytes Auto 0.16 Thou/mm3 (0.00-0.00); Lymphocytes # (Auto) 0.4 Thou/mm3 (1.0-4.8); Lymphocytes % (Auto) 36 % (10-50); Mean Corpuscular HGB Conc 33.8 g/dl (31.0-37.0); Mean Corpuscular Hemoglobin 29.8 pg (25.0-35.0); Mean Corpuscular Volume 88 fL (80-100); Monocytes # (Auto) 0.2 Thou/mm3 (0.0-0.8); Monocytes % (Auto) 18 % (0-12); Neutrophils # (Auto) 0.4 Thou/mm3 (1.8-7.7); Neutrophils % (Auto) 32 % (37-80); Nucleated Red Blood Cell # 0.00 Thou/mm3 (0.00-0.00); Nucleated Red Blood Cell % 0 /100 WBC (0); Platelet Count 141 Thou/mm3 (140-440); RDW Standard Deviation 49.3 fL (35.1-43.9); Red Blood Count 2.35 Miln/mm3 (4.50-5.90)
[2025-01-11 01:17] LABS: White Blood Count 1.2 Thou/mm3 (3.8-10.6)
[2025-01-11 01:18] LABS: Hemoglobin 7.0 g/dL (13.5-16.0)
[2025-01-11 01:23] LABS: Sed Rate (ESR) 32 mm/hr (0-20)
[2025-01-11 01:39] LABS: INR 1.1 (0.9-1.3); Partial Thromboplastin Time 24.9 Seconds (22.0-36.0); Prothrombin Time 12.4 Seconds (9.0-12.2)
[2025-01-11] MEDS: LEVOFLOXACIN/D5W 500 MG IVPB 500 MG/100 ML BAG 100 MG IV (01:46)
[2025-01-11 01:53] LABS: Alanine Aminotransferase 25 U/L (10-49); Albumin, Serum 3.6 gm/dL (3.4-4.8); Albumin/Globulin Ratio 1.3 (1.2-2.2); Alkaline Phosphatase 167 U/L (46-116); Amylase < 20 U/L (30-118); Anion Gap 9 (7-16); Aspartate Amino Transferase 27 U/L (0-34); BUN/Creatinine Ratio 16 Ratio (12-20); Bilirubin,Direct 0.5 mg/dL (0.0-0.3); Bilirubin,Total 1.0 mg/dL (0.3-1.2); Blood Urea Nitrogen 13 mg/dL (9-23); C-Reactive Protein 1.1 mg/dL (0.0-0.9); Calcium 9.0 mg/dL (8.3-10.6); Calcium (Corrected) 9.3 mg/dL (8.5-10.1); Carbon Dioxide 24.0 mMol/L (20.0-31.0); Chloride 101 mMol/L (98-107); Creatinine (Component) 0.8 mg/dL (0.6-1.3); Estimated Creatinine Clearance 131.6 mL/min (>60); Globulin 2.7 gm/dL (2.3-3.5); Glucose 192 mg/dL (74-106); Lipase 23 U/L (12-53); Magnesium 1.4 mg/dL (1.6-2.6); Osmolality,Calculated 273 (275-295); Potassium 4.3 mMol/L (3.4-5.1); Procalcitonin 0.40 ng/ml (0.0-0.49); Sodium 134 mMol/L (136-145); Total Protein 6.3 gm/dL (5.7-8.2); eGFR > 60 See Note
[2025-01-11] MEDS: HYDROmorphone INJ 2 MG/ML VIAL IVP (02:40)
--- NOTE | 2025-01-11 03:10 | PRELIM_ITS ---
Right upper quadrant abdominal ultrasound. January 11, 2025 at 0122 hours Clinical history: Right upper abdominal pain. Technique: Grayscale and color flow images of the right upper quadrant are provided. Hepatic and portal veins were also imaged with color flow images. Findings: The liver measures 22 cm and is normal in echogenicity. No solid masses, cyst, or ascites. No intrahepatic biliary ductal dilatation. The main portal vein is patent and demonstrates hepatopetal flow. The gallbladder wall is thickened, measuring 6.6 mm. No gallbladder calculus, sludge or pericholecystic fluid is demonstrated. The common bile duct is normal in caliber at 7 mm without evidence of common bile duct calculus. The pancreas is obscured by bowel gas. The inferior vena cava is patent. Impression: Gallbladder wall thickening without evidence of gallstones or pericholecystic fluid. In the appropriate clinical setting, acute acalculous cholecystitis cannot be excluded. Suggest follow-up with HIDA scan, if clinically indicated. Hepatomegaly. Report Electronically Signed By: Livan Gaytan 01/11/2025 2:25:40 AM [EST]
--- NOTE | 2025-01-11 04:37 | PC.NURSE ---
WE HAD DOWN TIME FROM [id number].
[2025-01-11 04:50] LABS: Collection Type, Urine Clean Catch
[2025-01-11 05:15] LABS: Bilirubin,Urine Negative (Negative); Blood,Urine Negative (Negative); Clarity,Urine Clear (Clear/Hazy); Color,Urine Yellow (Lt Yel-Yel); Culture Indicated,Urine Not Indicated; Glucose, Urine Negative (Negative); Ketones,Urine Negative (Negative); Leukocyte Esterase,Urine Negative (Negative); Nitrite,Urine Negative (Negative); PH,Urine 6.0 (5.0-7.0); Protein,Urine Trace (Neg - Trace); RBC,Urine 1 /hpf (0-3); Specific Gravity,Urine 1.031 (1.001-1.035); Squamous Epithelial Cell,Urine 4 /hpf (0-5); Urobilinogen,Urine 2.0 mg/dL (0.0-1.0); WBC,Urine 1 /hpf (0-5)
--- NOTE | 2025-01-11 06:14 | PRELIM_ITS ---
CT scan of the chest, abdomen and pelvis with intravenous contrast (axial sections with sagittal and coronal reformats): January 11, 2025 at 0450 hours Clinical History: Shortness of breath and abdominal pain after biliary tube insertio. Comparison: Correlated with the prior US study dated January 11, 2025. Findings: There are a few noncalcified well defined nodules in the right upper lobe and right lower lobe, largest measuring 1 x 1 cm in the right lower lobe (axial image 243/ 429). Bibasilar dependent atelectasis is present. There is no pleural effusion or pneumothorax. The aorta is unremarkable without evidence of dissection or aneurysm. No evidence of mediastinal mass or lymphadenopathy. There is no pericardial effusion. There is severe hepatomegaly, measuring 25 cm. There are a few ill-defined hypodense lesions in the liver, largest measuring 2.3 x 2.7 cm, suspicious for metastatic etiology. There is mild gallbladder wall thickening with mucosal enhancement and pericholecystic fat stranding/fluid. Pigtail catheter is seen in place in the common bile duct. There is mild pneumobilia in the left lobe of liver. Pancreatic duct is mildly prominent, measures 4 mm in diameter. There is moderate splenomegaly, measures 15 cm. The adrenals and kidneys are unremarkable. No evidence of bowel obstruction. Gastric banding and jejunojejunal anastomotic changes are noted. The appendix is within normal limits (images [id number]). There is diffuse mesenteric fat stranding at its root with a few prominent mesenteric lymph nodes. The urinary bladder is unremarkable. There is no free fluid or air. Degenerative changes are identified in the spine. Impression: 1. Findings suggestive of acute acalculous cholecystitis. 2. Few noncalcified well defined nodules in the right upper lobe and right lower lobe, suspicious for metastatic etiology. 3. A few ill-defined hypodense lesions in the liver, suspicious for metastatic etiology. 4. Hepatosplenomegaly. 5. Findings suggestive of mesenteric panniculitis. Report Electronically Signed By: Alok Benavides 01/11/2025 6:13:48 AM [EST]
[2025-01-11] MEDS: Magnesium Sulfate 2 GM Ivpb 2 GM/50 ML BAG IV (07:42)
--- NOTE | 2025-01-11 07:48 | PC.NURSE ---
PER SAVAGE RN, 1ST UNIT OF PRBS WERE STARTED DURING DOWNTIME; PAPER CHART IN PT'S CLIPBOARD CHART. 1ST UNIT STARTED AT 0420 THIS AM. THIS RN FILLED OUT PAPER CHART FOR FIRST UNIT OF PRBC'S THAT WAS TRANSFUSED FOR POST-TRANSFUSION. 1ST UNIT OF PRBC'S FINISHED TRANSFUSING AT 0733.
[2025-01-11] MEDS: ACETAMINOPHEN 325 MG TABLET 650 MG PO (08:21)
--- NOTE | 2025-01-11 10:00 | EVENTNT_ITS ---
Documentation for date of: 01/11/25 Event Note Event Note: 59-year-old male with significant past medical history of pancreatic cancer diagnosed in August 2024, with metastasis to liver, following with oncologist in [place] and not on any chemotherapy as of now, known pancytopenia with recurrent transfusions and on [place] stimulating factor taking every other day, status post biliary stent, underwent 4 procedures in the last 4 months, last procedure within 2 days presented to the hospital with chief complaints of fever, abdominal pain. Reported that he developed febrile episode after biliary stent placement. Also endorsed that the pancytopenia is not related to metastasis, unsure of the diagnosis but using colony-stimulating factor every other day for that. Vitals at the time of admission are significant for temperature 102.9 ?F and pulse rate 112 bpm. Labs done at the time of admission were significant for WBC 1.2, hemoglobin 5.4, platelets 155, total bilirubin 1, AST and ALT are within normal limits, ALP 167. Amylase and lipase levels are within normal limits. Pro calcitonin is 0.4, CRP 1.1. Patient is revealed receiving blood transfusions at the time of examination. Reported that he does not want to get admitted in the hospital and even if he get admitted he will stay only for a day and wants to leave AGAINST MEDICAL ADVICE. Explained all the risks and prognosis about his neutropenia and susceptible to severe infection. Despite explaining everything patient wants to leave AGAINST MEDICAL ADVICE. Patient is awake, alert and oriented and able to understand all the conversation. Patient plan of care was discussed with the attending physician, Dr. Mary Sykes, PGY2
--- NOTE | 2025-01-11 10:43 | EDNOTE_ITS ---
Emergency Room Addendum Addendum Narrative: 0600: Care assumed from Dr. Najera, the previous shift emergency physician. Past medical, surgical, social and family history reviewed. Vitals and home medications reviewed. I will assume the care of the patient at this time, pending CT chest/abdomen/pelvis and final disposition. Please refer to the emergency department record for history and examination from initial visit.?The following addendum documentation note is intended to reflect any pending information, findings, or radiology results not included in the patient?s initial chart. I spoke with hospitalist team B regarding admission. 1015: Notified by hospitalist team B residents that the patient is refusing admission. The patient is neutropenic and should be admitted. Originally the patient did not want to be admitted and changed his mind. I spoke with the patient and was made aware he is at risk for sepsis and has calculous cholecystitis. Discussed risks of developing sepsis, infection, and . The patient is alert, oriented and competent at this time. The patient states that they are aware of the serious risks as explained, but they continue to wish to leave against medical advice. RADIOLOGY Ordering Physician: Bhupinder Najera MD Date of Service: 01/11/25 Procedure(s): CT chest abdomen pelvis w Accession Number(s): [id number] cc: Bhupinder Najera MD; Christiano Garcia MD; NO PRIMARY/FAMILY,PHYSICIAN~ Examination: CT chest with intravenous contrast CT abdomen with intravenous contrast CT pelvis with intravenous contrast 2-D coronal and sagittal reconstructions Time of exam: January 11, 2025, 0450 hrs., Comparison November 25, 2024. Indications: History biliary stent, abdominal pain post biliary tube insertion yesterday, shortness of breath chest pain CTDI: vol (mGy) : 10.3. DLP: (mGycm): 896. Technique: Multiple axial images of the chest, abdomen and pelvis with intravenous contrast, 3.0 mm slice thickness. Images obtained post intravenous injection Isovue 370 60 cc. 2-D sagittal and coronal reconstructions. Low dose protocols were performed. One or more of the following dose reduction techniques were used; automated exposure control, adjustment of the mA and/or KV according to patient size, use of iterative reconstruction technique. Findings: Multiple bilateral noncalcified pulmonary nodules, the largest in the right lung measuring up to 6 mm No thoracic aortic aneurysmal dilatation. Pulmonary artery segments are not enlarged. No pneumonia, pulmonary edema or pleural disease. Prominent splenomegaly. Multiple solid liver lesions, the largest in the right lobe liver 30 mm Splenomegaly Biliary stent satisfactory position Gallbladder wall thickening and edema Pneumobilia Mild dilatation pancreatic duct 4 mm Mild edema surrounding the pancreas. No bowel obstruction. 2 mm left renal calculus. Normal appendix No bowel obstruction Urinary bladder intact Mesenteric fat stranding Degenerative change in the lumbar spine Impression: Multiple noncalcified likely metastatic pulmonary nodules. No pneumonia, pulmonary edema. Hepatosplenomegaly. Hepatic metastases. Biliary stent satisfactory position. Acute cholecystitis. Mild pancreatitis. 2 mm left renal calculus. Normal appendix Dictated By: Christiano Garcia MD Signed By: <Electronically signed by Christiano Garcia MD in [place]> 01/11/25 0759 Ordering Physician: Bhupinder Najera MD Date of Service: 01/11/25 Procedure(s): US abdomen limited Accession Number(s): [id number] cc: Bhupinder Najera MD; Christiano Garcia MD; NO PRIMARY/FAMILY,PHYSICIAN~ Examination: Abdomen sonogram, Limited Date and time of exam: January 11, 2025 0122 hours INDICATIONS: Right upper abdominal pain and nausea beginning several weeks ago Technique: Real-time keane scale transabdominal sonographic images of the upper abdomen obtained. Findings: Negative for gallstones Gallbladder wall is thickened 0.66 cm Common bile duct enlarged 0.70 cm no stones Pancreas obscured by bowel gas Hepatomegaly 22 cm no liver lesions Normal hepatopedal portal venous flow Patent IVC IMPRESSION: Findings consistent with acalculus cholecystitis Consider HIDA scan or MRCP follow-up Dictated By: Christiano Garcia MD Signed By: <Electronically signed by Christiano Garcia MD in [place]> 01/11/25 1012
--- NOTE | 2025-01-11 12:14 | PC.NURSE ---
@0715- PT REQUESTING TO LEAVE AMA; PER PT, I HAVE A FLIGHT TO CATCH TO GO SEE FAMILY MEMBERS. PT EDUCATED THAT MAGNESIUM IV IS ORDERED SINCE PT'S MAGNESIUM WAS LOW AND 1 MORE UNIT OF PRBC'S NEED TO BE TRANSFUSED FOR PT. PT WILLING TO STAY AT THIS TIME. @0900- DR. Kristin YOUNG AT BEDSIDE TALKING TO PT FOR ADMISSION. PT REFUSING ADMISSION AT THIS TIME. DR. Kristin FINNEY AT BEDSIDE EXPLAINING RISKS OF LEAVING AMA. PT STILL WILLING TO LEAVE AMA. PT GCS 15, A&OX4. PT WILLING TO STAY UNTIL BLOOD TRANSFUSION IS FINISHED. @[id number]- RN AT BEDSIDE. 2ND UNIT OF PRBC'S COMPLETELY INFUSED AT THIS TIME. PT STILL A&OX4, GCS 15. PT WANTING TO LEAVE AMA. PT EDUCATED AGAIN ON RISKS OF LEAVING AMA. PT SIGNED AMA FORM. PT LEFT FACILITY AMA AT THIS TIME.
== END 2025-01-11 12:12 | disposition left against medical advice (07) ==
PROVIDERS: Emergency Medicine; Emergency Provider Family Medicine
DX: D70.9 Neutropenia, unspecified (principal); D64.9 Anemia, unspecified; C25.9 Malignant neoplasm of pancreas, unspecified
CPT/HCPCS: 36415; 36430; 71045; 71260; 74177; 76705; 80053; 81001; 82010; 82150; 82248; 83605; 83690; 83735; 84145; 85025; 85610; 85652; 85730; 86140; 86850; 86900; 86901; 86923; 87040; 87400; 87811; 96365; 96366; 96375; 96376; 99284; A4649; J0131; J1171; J1885; J1956; J2405; J3475; J7030; P9016; Q9967; A9270

== ENCOUNTER 2025-01-12 02:27 | Emergency (ER) | payer OTHER, SELFPAY ==
[2025-01-12] VITALS (7 sets, daily range): BP systolic 104–144; BP diastolic 57–79; PULSE 77–120; RESP 16–18; TEMP 36.6–39.4; O2SAT 95–99; BMI 28.5
--- NOTE | 2025-01-12 02:52 | PD.EDABDPN ---
ED Abdominal Pain RME/HPI General Chief Complaint: Abdominal Pain Stated complaint: ABD PAIN Time seen by provider: 01/12/25 03:00 Arrival date/time: 01/12/25 02:27 RME / HPI RME / HPI narrative: See MDM for Dr. Najera's HPI documentation. Related Data Allergies Allergy/AdvReac Type Severity Reaction Status Date / Time hydrocodone Allergy Severe Nausea Verified 01/09/25 20:47 Penicillins Allergy Severe Anaphylaxis Verified 01/09/25 20:47 Review of Systems Review of Systems Systems Reviewed: All systems reviewed, normal except as documented ED Exam Narrative Physical exam: See MDM for Dr. Najera's physical exam documentation. Course Course Course Narrative: 0250: Sepsis alert initiated. Orders made at this time are congruent with ED Adult Sepsis Order List. Re-evaluation is to be completed. 0333: NS IVF started. 0515: Sepsis reassessment performed consisting of lab review, vitals, physical exam including auscultation of heart, lungs, and visual evaluation of capillary refills, mucosal membranes and extremities. Quality Measures none Orders Category Date Time Status MRI Screening NOW Care 01/12/25 04:38 Active Saline [Insert IV] NOW Care 01/12/25 03:03 Active MR MRCP Stat Exams 01/12/25 Ordered Amylase Stat Lab 01/12/25 03:24 Completed Beta Hydroxybutyrate Stat Lab 01/12/25 03:24 Completed Bilirubin,Direct Stat Lab 01/12/25 03:24 Completed Blood Culture (Lab) Stat Lab 01/12/25 03:24 Received CBC Stat Lab 01/12/25 03:24 Completed CMP [Comprehensive Metabolic Panel] Stat Lab 01/12/25 03:24 Completed CRP [C-Reactive Protein] Stat Lab 01/12/25 03:24 Completed ESR [Sed Rate (ESR)] Stat Lab 01/12/25 03:24 Completed Lactate (Lactic Acid) Stat Lab 01/12/25 03:24 Completed Lipase Stat Lab 01/12/25 03:24 Completed Magnesium Stat Lab 01/12/25 03:24 Completed Procalcitonin Stat Lab 01/12/25 03:24 Completed UA, C/S IF [Urinalysis, C/S if Indicated] Stat Lab 01/12/25 03:09 Ordered Acetaminophen Tab [Tylenol ES Tab] Med 01/12/25 03:06 Discontinued 1,000 mg PO X1 ONE HYDROmorphone INJ [Dilaudid Inj] Med 01/12/25 03:07 Discontinued 1 mg IVP X1 ONE Ketorolac Inj [Toradol Inj] Med 01/12/25 03:06 Discontinued 30 mg IVP X1 ONE Levofloxacin/D5w 750Mg Ivpb [Levaquin Ivpb] Med 01/12/25 03:07 Discontinued 750 mg in 150 ml IV X1 Ondansetron Inj [Zofran Inj] Med 01/12/25 03:06 Discontinued 4 mg IVP X1 ONE Sodium Chloride 0.9% 1000 ml [Ns] 1,000 ml Med 01/12/25 03:06 Discontinued IV 999 mls/hr Sodium Chloride 0.9% 1000 ml [Ns] 1,000 ml Med 01/12/25 03:07 Discontinued IV 999 mls/hr Sodium Chloride 0.9% 1000 ml [Ns] 1,000 ml Med 01/12/25 03:08 Discontinued IV 999 mls/hr metroNIDAZOLE/NS 500 MG IVPB [Flagyl 500 mg IV] Med 01/12/25 03:08 Discontinued 500 mg in 100 ml IV X1 Vital Signs Vital signs: Vital Signs Temperature 102.9 F H 01/12/25 02:49 Pulse Rate 112 H 01/12/25 02:49 Respiratory Rate 18 01/12/25 02:49 Blood Pressure 119/57 L 01/12/25 02:49 Pulse Oximetry (%) 95 01/12/25 02:49 Oxygen Delivery Method Room Air 01/12/25 02:49 Abdominal Pain MDM MDM Narrative MDM Narrative:: This section includes all my notes and documentations, including HPI, PE, and ED course. Bhupinder Najera MD HPI: 59yo male here with worsening fever and chills and bodyaches and malaise and abdominal pain. He was seen here yesterday. He declined hospitalization and left AMA. He has unfortunate history of pancreatic cancer with biliary drains. His symptoms may have started after outside drain was replaced to the before yesterday. No other complaints. ROS: All negative except as documented in HPI. Physical Exam: General: Alert and oriented. Appearance of malaise noted. In obvious pain. Fever noted. Eyes: Conjunctivae and lids clear. ENT: No nasal congestion. Neck: Supple. Heart: Sinus tachycardia noted. Lungs: No respiratory distress. Good air movement. No rhonchi, wheezing, rales. Abdomen: Soft with severe tenderness, difficult to localize. Normal bowel sounds. No distension. No rebound or guarding. Back: No CVA tenderness. Skin: Warm and dry. Neuro: Alert and oriented X 3. I reviewed EMS notes. I reviewed all returned diagnostic test results. Blood tests remarkable for WBC 1.1, 47% neutrophils, ESR 42, Total Bili 1.5 (Direct Bili 0.7), Alk Phos 160, Beta Hydroxybutyrate 0.9, CRP >10, LA 0.8, and Procalcitonin 0.42. Yesterday's ultrasound and CT scan recommended MRCP. I ordered MRCP. At this point, diagnoses include: Sepsis Neutropenia Cholecystitis Elevated bilirubin Treatment here included: IV fluid (3 L) and Zofran Toradol and Tylenol Dilaudid Levaquin and Flagyl At 6 AM on 01/12/2025, the care of the patient was transferred to Dr. Capellan. Bhupinder Najera MD Patient data External records reviewed:: [facility] previous records (Per chart review, patient was seen here yesterday for abdominal pain and left AMA.) and EMS form Clinical information provided by:: patient Social determinants that could affect healthcare access:: none Patient has the following chronic illnesses:: pancreatic CA How is presenting disease/condition affected by chronic disease/condition?: exacerbated by Evaluation data The following diagnostics were reviewed and interpreted by me:: lab results Lab and/or radiology exams considered but not ordered:: none Interpretation Summary: I reviewed all returned diagnostic test results. Blood tests remarkable for WBC 1.1, 47% neutrophils, ESR 42, Total Bili 1.5 (Direct Bili 0.7), Alk Phos 160, Beta Hydroxybutyrate 0.9, CRP >10, LA 0.8, and Procalcitonin 0.42. Medications / Prescriptions Medications or Prescriptions considered but not ordered:: none Medication administrations:: Medication Administration History Discontinued Medications Acetaminophen (Acetaminophen 500 Mg Tablet) 1,000 mg PO X1 ONE Stop: 01/12/25 03:07 Last Admin: 01/12/25 03:31 Dose: 1,000 mg Documented By: RANDALL Hydromorphone HCl (Hydromorphone Inj 2 Mg/Ml Vial) 1 mg IVP X1 ONE Stop: 01/12/25 03:08 Last Admin: 01/12/25 03:45 Dose: 1 mg Documented By: RANDALL Sodium Chloride (Ns) 1,000 mls @ 999 mls/hr IV .Q1H1M ONE Stop: 01/12/25 04:06 Last Admin: 01/12/25 03:33 Dose: 999 mls/hr Documented By: RANDALL Sodium Chloride (Ns) 1,000 mls @ 999 mls/hr IV .Q1H1M ONE Stop: 01/12/25 04:07 Last Admin: 01/12/25 03:33 Dose: 999 mls/hr Documented By: RANDALL Levofloxacin/Dextrose (Levaquin Ivpb) 750 mg in 150 mls @ 100 mls/hr IV X1 ONE Stop: 01/12/25 04:36 Last Admin: 01/12/25 03:32 Dose: 100 mls/hr Documented By: RANDALL Metronidazole (Flagyl 500 Mg Iv) 500 mg in 100 mls @ 100 mls/hr IV X1 ONE Stop: 01/12/25 04:07 Last Admin: 01/12/25 05:12 Dose: 100 mls/hr Documented By: RANDALL Sodium Chloride (Ns) 1,000 mls @ 999 mls/hr IV .Q1H1M ONE Stop: 01/12/25 04:08 Last Admin: 01/12/25 04:54 Dose: 999 mls/hr Documented By: RANDALL Ketorolac Tromethamine (Ketorolac Inj 30 Mg/Ml Vial) 30 mg IVP X1 ONE Stop: 01/12/25 03:07 Last Admin: 01/12/25 03:31 Dose: 30 mg Documented By: RANDALL Ondansetron HCl (Ondansetron Inj 2 Mg/Ml Inj 2 Ml) 4 mg IVP X1 ONE; Protocol Stop: 01/12/25 03:07 Last Admin: 01/12/25 03:30 Dose: 4 mg Documented By: RANDALL Treatment here included: IV fluid (3 L) and Zofran Toradol and Tylenol Dilaudid Levaquin and Flagyl Consultations Consultation(s) initiated? (list below): No Diagnosis Differential diagnosis abdominal pain: pancreatitis and other (cholelithiasis, cholecystitis, choledocholithiasis) Most likely diagnosis given after review of the tests above:: At this point, diagnoses include: Sepsis Neutropenia Cholecystitis Elevated bilirubin Admission Indicated Admission indicated?: not indicated Explain why admission is indicated or not indicated:: Complete diagnostic tests pending. Admission Request Was there a request for admission?: No Disposition Plan Disposition Plan: other (specify) (Signed out to Dr. Capellan at 6 AM.) Critical Care Time Critical Care Time Critical Care Time: Yes Total Critical Care Time (min.): 36 Attestation: Due to a high probability of clinically significant, life threatening deterioration, the patient required my highest level of preparedness to intervene emergently and I personally spent this critical care time directly and personally managing the patient. This critical care time included obtaining a history; examining the patient; ordering and review of studies; arranging urgent treatment with development of a management plan; evaluation of patient's response to treatment; frequent reassessment; and discussions with family and other providers. It was exclusive of separately billable procedures and treating other patients and teaching time. Bhupinder Najera MD Discharge Plan Prescriptions/Referrals Referrals: No Primary/Family,Physician [Primary Care Provider] - In 1 week Problem List Clinical Impression: Sepsis, Neutropenia, Cholecystitis, Elevated bilirubin Patient/Caregiver Discharge Instructions Print Language: Georgian
[2025-01-12] MEDS: ONDANSETRON INJ 2 MG/ML INJ 2 ML 4 MG IVP ×2 (03:30→11:32)
[2025-01-12] MEDS: ACETAMINOPHEN 500 MG TABLET 1000 MG PO (03:31)
[2025-01-12] MEDS: KETOROLAC INJ 30 MG/ML VIAL IVP (03:31)
[2025-01-12] MEDS: LEVOFLOXACIN/D5W 750MG IVPB 750 MG/150 ML BAG 100 MG IV (03:32)
[2025-01-12 03:33] LABS: Lactate (Lactic Acid) 0.8 mMol/L (0.4-2.0)
[2025-01-12] MEDS: SODIUM CHLORIDE 0.9% 1000 ML 1,000 ML 999 ML IV ×3 (03:33→04:54)
[2025-01-12 03:39] LABS: Beta Hydroxybutyrate 0.9 mmol/L (<0.6); Sed Rate (ESR) 42 mm/hr (0-20)
[2025-01-12 03:43] LABS: Basophils # (Auto) 0.0 Thou/mm3 (0.0-0.2); Basophils % (Auto) 2 % (0-2.5); Eosinophils # (Auto) 0.0 Thou/mm3 (0.0-0.5); Eosinophils % (Auto) 1 % (0-10); Hematocrit 30.5 % (41.0-53.0); Hemoglobin 10.6 g/dL (13.5-16.0); Immature Granulocytes Auto 0.10 Thou/mm3 (0.00-0.00); Lymphocytes # (Auto) 0.4 Thou/mm3 (1.0-4.8); Lymphocytes % (Auto) 31 % (10-50); Mean Corpuscular HGB Conc 34.8 g/dl (31.0-37.0); Mean Corpuscular Hemoglobin 29.5 pg (25.0-35.0); Mean Corpuscular Volume 85 fL (80-100); Monocytes # (Auto) 0.1 Thou/mm3 (0.0-0.8); Monocytes % (Auto) 11 % (0-12); Neutrophils # (Auto) 0.5 Thou/mm3 (1.8-7.7); Neutrophils % (Auto) 47 % (37-80); Nucleated Red Blood Cell # 0.00 Thou/mm3 (0.00-0.00); Nucleated Red Blood Cell % 0 /100 WBC (0); Platelet Count 105 Thou/mm3 (140-440); RDW Standard Deviation 47.2 fL (35.1-43.9); Red Blood Count 3.59 Miln/mm3 (4.50-5.90)
[2025-01-12] MEDS: HYDROmorphone INJ 2 MG/ML VIAL 1 MG IVP ×2 (03:45→11:31)
[2025-01-12 03:47] LABS: White Blood Count 1.1 Thou/mm3 (3.8-10.6)
[2025-01-12 04:11] LABS: Alanine Aminotransferase 35 U/L (10-49); Albumin, Serum 3.2 gm/dL (3.4-4.8); Albumin/Globulin Ratio 1.3 (1.2-2.2); Alkaline Phosphatase 160 U/L (46-116); Amylase < 20 U/L (30-118); Anion Gap 11 (7-16); Aspartate Amino Transferase 27 U/L (0-34); BUN/Creatinine Ratio 23 Ratio (12-20); Bilirubin,Direct 0.7 mg/dL (0.0-0.3); Bilirubin,Total 1.5 mg/dL (0.3-1.2); Blood Urea Nitrogen 18 mg/dL (9-23); C-Reactive Protein > 10.0 mg/dL (0.0-0.9); Calcium 8.5 mg/dL (8.3-10.6); Calcium (Corrected) 9.1 mg/dL (8.5-10.1); Carbon Dioxide 22.2 mMol/L (20.0-31.0); Chloride 101 mMol/L (98-107); Creatinine (Component) 0.8 mg/dL (0.6-1.3); Estimated Creatinine Clearance 131.6 mL/min (>60); Globulin 2.4 gm/dL (2.3-3.5); Glucose 177 mg/dL (74-106); Lipase 16 U/L (12-53); Magnesium 1.6 mg/dL (1.6-2.6); Osmolality,Calculated 274 (275-295); Potassium 4.3 mMol/L (3.4-5.1); Procalcitonin 0.42 ng/ml (0.0-0.49); Sodium 134 mMol/L (136-145); Total Protein 5.6 gm/dL (5.7-8.2); eGFR > 60 See Note
[2025-01-12] MEDS: metroNIDAZOLE/NS 500 MG IVPB 500 MG/100 ML BAG 100 MG IV (05:12)
--- NOTE | 2025-01-12 08:34 | PC.NURSE ---
pt in MRi at this time
--- NOTE | 2025-01-12 08:46 | PD.RESEVENT ---
Documentation for date of: 01/12/25 Event Note Event Note: Received call for admission around 8:30am. Patient has acute cholecystitis in the setting of a biliary stent, noted on CT A/P/ Requested ED for MRCP to furtehr evaluate. Patient may need to be evaluated by GI as well, and possibly transferred to a tertiary care center, given presence of bilary stent. ED to call IM hospitalist team back when results available. Plan of care discussed with attending Dr Gallego, - Clark Vasquez M.D. PGY3
--- NOTE | 2025-01-12 10:24 | PD.EDADDENDU ---
Emergency Room Addendum Addendum Narrative: 0600: Care assumed from Dr. Najera, the previous shift emergency physician. Past medical, surgical, social and family history reviewed. Vitals and home medications reviewed. I will assume the care of the patient at this time, pending MRCP and final disposition . Please refer to the emergency department record for history and examination from initial visit.?The following addendum documentation note is intended to reflect any pending information, findings, or radiology results not included in the patient?s initial chart. 0715: I spoke with hospitalist team C residents regarding admission. They are requesting MRCP to be performed prior to accepting for admission. 1050: Notified by RN that the patient has yet to get MRCP done. I spoke with health technician Landon who reports the MRCP has yet to be performed due to the patient having a metallic valve placed at [facility]. 1053: I spoke with hospitalist Dr. Gallego and he advised transferring the patient. 1056: I spoke with GI Dr. Kennedy and also advised transferring the patient. 1230: I had a long discussion with [facility] Dr. Walker. Discussed patients PMHx, HPI, ED course, exam findings, labs, and radiology results. Case #[id number]. 1249: Patient has been accepted for transfer to [facility] in [place], [place]. 1500: EMS here to transport the patient.
--- NOTE | 2025-01-12 10:59 | PD.RESEVENT ---
Documentation for date of: 01/11/25 Event Note Event Note: 59-year-old male with significant past medical history of pancreatic cancer diagnosed in August 2024, with metastasis to liver, following with oncologist in [place] and not on any chemotherapy as of now, known pancytopenia with recurrent transfusions and on [place] stimulating factor taking every other day, status post biliary stent, underwent 4 procedures in the last 4 months, last procedure within 2 days presented to the hospital with chief complaints of fever, abdominal pain. Reported that he developed febrile episode after biliary stent placement. Also endorsed that the pancytopenia is not related to metastasis, unsure of the diagnosis but using colony-stimulating factor every other day for that. Vitals at the time of admission are significant for temperature 102.9 ?F and pulse rate 112 bpm. Labs done at the time of admission were significant for WBC 1.2, hemoglobin 5.4, platelets 155, total bilirubin 1, AST and ALT are within normal limits, ALP 167. Amylase and lipase levels are within normal limits. Procalcitonin is 0.4, CRP 1.1. Patient is revealed receiving blood transfusions at the time of examination. Reported that he does not want to get admitted in the hospital and even if he get admitted he will stay only for a day and wants to leave AGAINST MEDICAL ADVICE. Explained all the risks and prognosis about his neutropenia and susceptible to severe infection. Despite explaining everything patient wants to leave AGAINST MEDICAL ADVICE. Patient is awake, alert and oriented and able to understand all the conversation. Patient plan of care was discussed with the attending physician, Dr. Mary Sykes, PGY2
[2025-01-12 12:16] LABS: Alanine Aminotransferase 27 U/L (10-49); Albumin, Serum 3.3 gm/dL (3.4-4.8); Albumin/Globulin Ratio 1.3 (1.2-2.2); Alkaline Phosphatase 144 U/L (46-116); Anion Gap 9 (7-16); Aspartate Amino Transferase 19 U/L (0-34); BUN/Creatinine Ratio 21 Ratio (12-20); Bilirubin,Total 1.0 mg/dL (0.3-1.2); Blood Urea Nitrogen 15 mg/dL (9-23); Calcium 8.7 mg/dL (8.3-10.6); Calcium (Corrected) 9.3 mg/dL (8.5-10.1); Carbon Dioxide 23.5 mMol/L (20.0-31.0); Chloride 104 mMol/L (98-107); Creatinine (Component) 0.7 mg/dL (0.6-1.3); Estimated Creatinine Clearance 150.3 mL/min (>60); Globulin 2.5 gm/dL (2.3-3.5); Glucose 139 mg/dL (74-106); Osmolality,Calculated 274 (275-295); Potassium 4.8 mMol/L (3.4-5.1); Sodium 136 mMol/L (136-145); Total Protein 5.8 gm/dL (5.7-8.2); eGFR > 60 See Note
--- NOTE | 2025-01-12 12:29 | PC.CM ---
Addendum entered by Haylie Koch RN 01/12/25 14:24: Patient accepted by [facility] address [address]. Patient going to the ED with Dr. Gurinder Prasad. Number for report is [phone]. Patient will be picked up by [facility] at 1430. I handed off report and completed packet with 1 CD to change nurse. Original Note: 1215 I contacted the [facility] ([facility]) number for [place] and initiated a transfer request. 1212 I received a referral to transfer patient for ERCP. Patient is a [place].
[2025-01-12] MEDS: metroNIDAZOLE/NS 500 MG IVPB 500 MG/100 ML BAG 200 MG IV (12:45)
== END 2025-01-12 15:00 | disposition short-term general hospital (02) ==
PROVIDERS: Emergency Medicine; Internal Medicine; Emergency Provider Family Medicine
DX: A41.9 Sepsis, unspecified organism (principal); D70.9 Neutropenia, unspecified; K81.0 Acute cholecystitis; C25.9 Malignant neoplasm of pancreas, unspecified; Z96.89 Presence of other specified functional implants; Z88.0 Allergy status to penicillin; Z88.5 Allergy status to narcotic agent
CPT/HCPCS: 36415; 80053; 81001; 82010; 82150; 82248; 83605; 83690; 83735; 84145; 85025; 85652; 86140; 87040; 96365; 96366; 96375; 96376; 99284; J1171; J1885; J1956; J2405; J3490; J7030; A9270; J1836

== ENCOUNTER 2025-01-21 05:25 | Emergency (ER) | payer OTHER, SELFPAY ==
[2025-01-21 05:27] VITALS: BMI 28.2
[2025-01-21 05:38] VITALS: BP 119/72; PULSE 111; RESP 19; TEMP 36.8; O2SAT 97
--- NOTE | 2025-01-21 05:46 | XR_ITS ---
Examination: PA chest single view Technique: Upright PA chest single view Date and time: January 21, 2025, 0551 hrs. Indications: Shortness of breath fever today Findings: Normal heart size The lungs are clear. The osseous structures are intact Impression: No active disease.
--- NOTE | 2025-01-21 05:47 | PD.EDRME ---
Rapid Medical Screening Exam RME Arrival date/time: 01/21/25 05:25 This is a case of 59-year-old male with history of pancreatic cancer and blood disorder came in in the emergency room due to fever patient states that he has history of blood transfusion before worsening of the symptoms this patient decided to start consult in the emergency room Chief Complaint: Fever Time Seen by Provider: 01/21/25 05:46 Vital signs: Vital Signs Temperature 98.2 F 01/21/25 05:38 Pulse Rate 111 H 01/21/25 05:38 Respiratory Rate 19 01/21/25 05:38 Blood Pressure 119/72 01/21/25 05:38 Pulse Oximetry (%) 97 01/21/25 05:38 Oxygen Delivery Method Room Air 01/21/25 05:38
--- NOTE | 2025-01-21 07:10 | PC.NURSE ---
STAFF LOOKED FOR PATIENT IN THE CONFERENCE ROOM, REST ROOMS, MAIN ED, LOBBY, AND OUTSIDE NO ANSWER FROM PATIENT. CALLED PATIENT ON LISTED CELL PHONE ON FACE SHEET, PATIENT ANSWERED AND STATED HE HAD LEFT. THAT HE WOULD GO SEE HIS PRIMARY PROVIDER TOMORROW.
== END 2025-01-21 07:17 | disposition left against medical advice (07) ==
LOC: SERX 06:19
PROVIDERS: Emergency Provider Emergency Medicine
DX: R50.9 Fever, unspecified (principal); Z85.07 Personal history of malignant neoplasm of pancreas
CPT/HCPCS: 71045; 80053; 81001; 85025; 86850; 86900; 86901; 99283

== ENCOUNTER 2025-01-26 06:39 | Emergency (ER) | payer OTHER, SELFPAY ==
[2025-01-26] VITALS (20 sets, daily range): BP systolic 98–128; BP diastolic 52–88; PULSE 61–114; RESP 16–19; TEMP 36.4–37.3; O2SAT 94–100; BMI 28.0
--- NOTE | 2025-01-26 06:54 | XR_ITS ---
Examination: Abdomen AP single view Technique: AP portable supine abdomen, single view Exam date and time: January 26, 2025 at 0827 hours INDICATIONS: Constipation beginning one week ago. FINDINGS: Transhepatic biliary drainage catheter noted in satisfactory position Moderate stool and air throughout the colon Minimal small bowel ileus No free air IMPRESSION: Minimal small bowel ileus
--- NOTE | 2025-01-26 06:55 | EKG_ITS ---
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
--- NOTE | 2025-01-26 06:56 | PD.EDRME ---
Rapid Medical Screening Exam RME Arrival date/time: 01/26/25 06:39 59-year-old male with a history of pancreatic cancer was sent to the emergency room by his oncologist to check if he needs a blood transfusion due to increased weakness and lethargy. Patient also states he has not had a bowel movement in 13 days. I have greeted and performed a focused initial assessment of this patient. A comprehensive ED assessment and evaluation of the patient, analysis of all test results, and completion of the medical decision making process will be conducted by additional ED providers. Chief Complaint: General Adult/Misc Complain Vital signs: Vital Signs Temperature 98.0 F 01/26/25 06:41 Pulse Rate 114 H 01/26/25 06:41 Respiratory Rate 01/26/25 06:41 Blood Pressure 106/64 01/26/25 06:41 Pulse Oximetry (%) 94 L 01/26/25 06:41 Oxygen Delivery Method Room Air 01/26/25 06:41 Vital signs reviewed by provider: Yes
[2025-01-26 07:39] LABS: Basophils # (Auto) 0.0 Thou/mm3 (0.0-0.2); Basophils % (Auto) 2 % (0-2.5); Eosinophils # (Auto) 0.0 Thou/mm3 (0.0-0.5); Eosinophils % (Auto) 0 % (0-10); Immature Granulocytes Auto 0.01 Thou/mm3 (0.00-0.00); Lymphocytes # (Auto) 0.4 Thou/mm3 (1.0-4.8); Lymphocytes % (Auto) 67 % (10-50); Mean Corpuscular HGB Conc 33.1 g/dl (31.0-37.0); Mean Corpuscular Hemoglobin 28.6 pg (25.0-35.0); Mean Corpuscular Volume 86 fL (80-100); Monocytes # (Auto) 0.0 Thou/mm3 (0.0-0.8); Monocytes % (Auto) 6 % (0-12); Neutrophils # (Auto) 0.2 Thou/mm3 (1.8-7.7); Neutrophils % (Auto) 23 % (37-80); Nucleated Red Blood Cell # 0.00 Thou/mm3 (0.00-0.00); Nucleated Red Blood Cell % 0 /100 WBC (0); RDW Standard Deviation 46.5 fL (35.1-43.9); Red Blood Count 1.75 Miln/mm3 (4.50-5.90)
[2025-01-26 07:51] LABS: Hemoglobin 5.0 g/dL (13.5-16.0); White Blood Count 0.6 Thou/mm3 (3.8-10.6)
[2025-01-26 07:52] LABS: Hematocrit 15.1 % (41.0-53.0); Platelet Count 66 Thou/mm3 (140-440)
--- NOTE | 2025-01-26 07:59 | XR_ITS ---
Examination: AP chest single view Technique one AP portable upright chest single view Date and time: January 26, 2025 0837 hours, comparison 01/21/2025 INDICATIONS: Coughing today. FINDINGS: Reduced inspiratory effort Minimal opacity left base No pulmonary edema Mild osteopenia IMPRESSION: Suspicious for minimal pneumonia left base, the appearance should be clinically correlated
[2025-01-26 08:02] LABS: B-Type Natriuretic Peptide 37 pg/mL (0-100)
[2025-01-26 08:12] LABS: Alanine Aminotransferase 8 U/L (10-49); Albumin, Serum 3.0 gm/dL (3.4-4.8); Albumin/Globulin Ratio 1.0 (1.2-2.2); Alkaline Phosphatase 197 U/L (46-116); Anion Gap 7 (7-16); Aspartate Amino Transferase < 10 U/L (0-34); BUN/Creatinine Ratio 13 Ratio (12-20); Bilirubin,Total 1.6 mg/dL (0.3-1.2); Blood Urea Nitrogen 12 mg/dL (9-23); Calcium 8.1 mg/dL (8.3-10.6); Calcium (Corrected) 8.9 mg/dL (8.5-10.1); Carbon Dioxide 29.7 mMol/L (20.0-31.0); Chloride 92 mMol/L (98-107); Creatinine (Component) 0.9 mg/dL (0.6-1.3); Estimated Creatinine Clearance 115.8 mL/min (>60); Globulin 3.0 gm/dL (2.3-3.5); Glucose 191 mg/dL (74-106); Magnesium 1.7 mg/dL (1.6-2.6); Osmolality,Calculated 263 (275-295); Potassium 4.0 mMol/L (3.4-5.1); Sodium 129 mMol/L (136-145); Total Protein 6.0 gm/dL (5.7-8.2); Troponin I < 0.002 ng/mL (0.0-0.045); eGFR > 60 See Note
[2025-01-26 08:23] LABS: INR 1.3 (0.9-1.3); Partial Thromboplastin Time 25.8 Seconds (22.0-36.0); Prothrombin Time 14.4 Seconds (9.0-12.2)
[2025-01-26] MEDS: ONDANSETRON INJ 2 MG/ML INJ 2 ML 4 MG IVP ×2 (09:09→13:09)
[2025-01-26] MEDS: HYDROmorphone INJ 2 MG/ML VIAL 1 MG IVP ×2 (09:10→13:08)
[2025-01-26 09:18] LABS: Slide Review Platelets confirmed
[2025-01-26] MEDS: LEVOFLOXACIN/D5W 500 MG IVPB 500 MG/100 ML BAG 100 MG IV (10:27)
--- NOTE | 2025-01-26 10:33 | EDNOTE_ITS ---
ED General RME/HPI General Chief complaint: General Adult/Misc Complain Stated complaint: WEAKNESS Arrival date/time: 01/26/25 06:39 Limitations: no limitations RME / HPI RME / HPI narrative: 01/26/25 06:39 59-year-old male with a history of pancreatic cancer was sent to the emergency room by his oncologist to check if he needs a blood transfusion due to increased weakness and lethargy. Patient also states he has not had a bowel movement in 13 days. I have greeted and performed a focused initial assessment of this patient. A comprehensive ED assessment and evaluation of the patient, analysis of all test results, and completion of the medical decision making process will be conducted by additional ED providers. DR. CARLOS MAIN ED EVALUATION: 59 year old male with history of pancreatic cancer and hypertension presents to the ED referred by his oncologist for evaluation of weakness and dizziness today. Patient states the patient has had history of anemia requiring blood transfusion in the past and concerned he may be anemic today. Denies any black or red stool. Patient additionally complains of constipation with last bowel movement being several days ago. Mentioned he is on multiple narcotics for pain, one including long acting Morphine. Denies any fever, chills, or recent chemotherapy. Related Data Allergies Allergy/AdvReac Type Severity Reaction Status Date / Time hydrocodone Allergy Severe Nausea Verified 01/21/25 05:26 Penicillins Allergy Severe Anaphylaxis Verified 01/21/25 05:26 Review of Systems Review of Systems Systems Reviewed: All systems reviewed, normal except as documented Past Medical History Past Medical History GENITOURINARY: Positive Renal Disease OTHER HISTORY: Positive Blood Transfusions, Chemotherapy and Cancer (pancreatic cancer) Social History SMOKING STATUS: Never smoker SUBSTANCE USE: does not use ED Exam General Limitations: Present no limitations General appearance: Present alert, in no apparent distress and other (pale ) Head Head exam: Present atraumatic Eye Eye exam: Present normal appearance, PERRL and EOMI ENT ENT exam: Present normal exam, normal oropharynx and mucous membranes moist Neck Neck exam: Present normal inspection, full ROM and trachea midline Chest Chest inspection: Present normal inspection and symmetric chest wall rise Respiratory Respiratory exam: Present normal lung sounds bilaterally Cardiovascular Cardiovascular exam: Present regular rate, normal rhythm and normal heart sounds Abdominal Exam Abdominal exam: Present soft, distention (mild ), tenderness (mid abdominal tenderness over area of pancreatic cancer) and normal bowel sounds; Absent rebound or rigidity Extremities Exam Extremities exam: Present normal inspection and full ROM Back Exam Back exam: Present normal inspection and full ROM Neurological Exam Neurological exam: Present alert, oriented X3 and CN II-XII intact Psychiatric Psychiatric exam: Present normal affect and normal mood Skin Skin exam: Present warm, dry, intact and pallor Course Quality Measures none Orders Category Date Time Status Grocery Cashier NOW Care 01/26/25 07:59 Active Continuous Pulse Oximetry NOW Care 01/26/25 07:59 Completed EKG (ED ONLY) *Do not use* NOW Care 01/26/25 06:55 Completed Insert IV NOW Care 01/26/25 07:59 Active Soap Suds [Enema Administration] NOW Care 01/26/25 17:54 Active Transfuse,blood/blood products NOW Care 01/26/25 08:01 Active Diet Regular Diet 01/26/25 Lunch Active EKG (ED Only) Stat Exams 01/26/25 06:55 Draft XR abdomen 1V Stat Exams 01/26/25 06:54 Completed XR chest 1V portable Stat Exams 01/26/25 07:59 Completed B-Type Natriuretic Peptide Stat Lab 01/26/25 07:22 Completed CBC Stat Lab 01/26/25 07:22 Completed CMP [Comprehensive Metabolic Panel] Stat Lab 01/26/25 07:22 Completed Magnesium Stat Lab 01/26/25 07:22 Completed PT [Prothrombin Time with INR] Stat Lab 01/26/25 07:22 Completed PTT [Partial Thromboplastin Time] Stat Lab 01/26/25 07:22 Completed Troponin I Stat Lab 01/26/25 07:22 Completed Type and Screen Stat Lab 01/26/25 07:22 Completed Urinalysis, C/S if Indicated Stat Lab 01/26/25 10:28 Completed prbc [Red Blood Cells] Stat Lab 01/26/25 07:22 Completed DiphenhydrAMINE INJ [Benadryl Inj] Med 01/26/25 09:43 Discontinued 25 mg IVP X1 ONE HYDROmorphone INJ [Dilaudid Inj] Med 01/26/25 08:11 Discontinued 1 mg IVP X1 ONE HYDROmorphone INJ [Dilaudid Inj] Med 01/26/25 12:55 Discontinued 1 mg IVP X1 ONE HYDROmorphone INJ [Dilaudid Inj] Med 01/26/25 14:18 Discontinued 2 mg IVP X1 ONE Levofloxacin/D5w 500 mg Ivpb [Levaquin Ivpb] Med 01/26/25 09:45 Discontinued 500 mg in 100 ml IV X1 MethylPREDNISolone. [SoluMEDROL Inj] Med 01/26/25 09:43 Discontinued 60 mg IVP X1 ONE Ondansetron Inj [Zofran Inj] Med 01/26/25 08:11 Discontinued 4 mg IVP X1 ONE Ondansetron Inj [Zofran Inj] Med 01/26/25 12:55 Discontinued 4 mg IVP X1 ONE Ondansetron Inj [Zofran Inj] Med 01/26/25 14:18 Discontinued 4 mg IVP X1 ONE Pantoprazole Inj [Protonix Inj] Med 01/26/25 08:11 Discontinued 40 mg IVP X1 ONE Oxygen Delivery NOW RT 01/26/25 07:59 Active Vital Signs Vital signs: Vital Signs Temperature 98.0 F 01/26/25 06:41 Pulse Rate 114 H 01/26/25 06:41 Respiratory Rate 01/26/25 06:41 Blood Pressure 106/64 01/26/25 06:41 Pulse Oximetry (%) 94 L 01/26/25 06:41 Oxygen Delivery Method Room Air 01/26/25 06:41 Pulse ox is 94% on room air which is adequate. Discharge Plan Plan Patient Disposition: HOME (Self Care) Patient condition on transfer: Stable Prescriptions/Referrals Referrals: No Primary/Family,Physician [Primary Care Provider] - In 1 week Problem List Clinical Impression: Anemia, Constipation Patient/Caregiver Discharge Instructions Discharge Activity: activity as tolerated Education Materials: Anemia During Cancer, How the Colon Works, ED Constipation (Adult) Additional Instructions: Follow-up with your doctor as scheduled. Print Language: Polish Stand Alone Forms: [employer] Award Info., Patient Portal Info Letter MDM Clinical Information Provided by: patient and EMS Medical Records reviewed [facility] and EMS Meds/Rx considered, not ordered None Labs/Rad/Tests considered, not ordered None Chronic Illness/Social Conditions which may negatively complicate care or outcome(s)-explain: Cancer EKG Interpretation EKG #1: EKG Interpretation: EKG @ 06:58h. Sinus tachycardia, rate 105, nonspecific T-wave abnormality. Labs Lab(s) Interpretation(s): Leukopenia @ 0.6 H/H 5.0/15.1 Imaging Imaging Interpretation(s): Ordering Physician: Ivan Govea Date of Service: 01/26/25 Procedure(s): XR abdomen 1V Accession Number(s): [id number] cc: Ivan Govea; Christiano Garcia MD; NO PRIMARY/FAMILY,PHYSICIAN~ Examination: Abdomen AP single view Technique: AP portable supine abdomen, single view Exam date and time: January 26, 2025 at 0827 hours INDICATIONS: Constipation beginning one week ago. FINDINGS: Transhepatic biliary drainage catheter noted in satisfactory position Moderate stool and air throughout the colon Minimal small bowel ileus No free air IMPRESSION: Minimal small bowel ileus Dictated By: Christiano Garcia MD Signed By: <Electronically signed by Christiano Garcia MD in OV> 01/26/25 0904 Ordering Physician: Marcus Carlos MD Date of Service: 01/26/25 Procedure(s): XR chest 1V portable Accession Number(s): [id number] cc: Marcus Carlos MD; Christiano Garcia MD; NO PRIMARY/FAMILY,PHYSICIAN~ Examination: AP chest single view Technique one AP portable upright chest single view Date and time: January 26, 2025 0837 hours, comparison 01/21/2025 INDICATIONS: Coughing today. FINDINGS: Reduced inspiratory effort Minimal opacity left base No pulmonary edema Mild osteopenia IMPRESSION: Suspicious for minimal pneumonia left base, the appearance should be clinically correlated Dictated By: Christiano Garcia MD Signed By: <Electronically signed by Christiano Garcia MD in OV> 01/26/25 0905 Medication Administration(s) Medication Administration History Discontinued Medications Diphenhydramine HCl (Diphenhydramine Inj 50 Mg/Ml Vial) 25 mg IVP X1 ONE Stop: 01/26/25 09:44 Last Admin: 01/26/25 11:33 Dose: 25 mg Documented By: LUIS Hydromorphone HCl (Hydromorphone Inj 2 Mg/Ml Vial) 1 mg IVP X1 ONE Stop: 01/26/25 08:12 Last Admin: 01/26/25 09:10 Dose: 1 mg Documented By: LUIS Hydromorphone HCl (Hydromorphone Inj 2 Mg/Ml Vial) 1 mg IVP X1 ONE Stop: 01/26/25 12:56 Last Admin: 01/26/25 13:08 Dose: 1 mg Documented By: LUIS Hydromorphone HCl (Hydromorphone Inj 2 Mg/Ml Vial) 2 mg IVP X1 ONE Stop: 01/26/25 14:19 Last Admin: 01/26/25 16:11 Dose: 2 mg Documented By: LUIS Levofloxacin/Dextrose (Levaquin Ivpb) 500 mg in 100 mls @ 100 mls/hr IV X1 ONE Stop: 01/26/25 10:44 Last Infusion: 01/26/25 11:37 Dose: Infused Documented By: Admin: 01/26/25 10:27 Dose: 100 mls/hr Documented By: LUIS Methylprednisolone Sodium Succinate (Methylprednisolone Sod Succ 40 Mg/Ml Vial) 60 mg IVP X1 ONE Stop: 01/26/25 09:44 Last Admin: 01/26/25 11:34 Dose: 60 mg Documented By: LUIS Ondansetron HCl (Ondansetron Inj 2 Mg/Ml Inj 2 Ml) 4 mg IVP X1 ONE; Protocol Stop: 01/26/25 08:12 Last Admin: 01/26/25 09:09 Dose: 4 mg Documented By: LUIS Ondansetron HCl (Ondansetron Inj 2 Mg/Ml Inj 2 Ml) 4 mg IVP X1 ONE; Protocol Stop: 01/26/25 12:56 Last Admin: 01/26/25 13:09 Dose: 4 mg Documented By: LUIS Ondansetron HCl (Ondansetron Inj 2 Mg/Ml Inj 2 Ml) 4 mg IVP X1 ONE; Protocol Stop: 01/26/25 14:19 Last Admin: 01/26/25 17:11 Dose: Not Given Documented By: LUIS Non-Admin Reason: Duplicate Medication on eMAR Pantoprazole Sodium (Pantoprazole Inj 40 Mg Vial) 40 mg IVP X1 ONE Stop: 01/26/25 08:12 Last Admin: 01/26/25 09:10 Dose: 40 mg Documented By: DB See above Diagnosis Diagnoses ruled out and/or further discussions: Anemia Constipation
[2025-01-26 10:36] LABS: Collection Type, Urine Clean Catch
[2025-01-26 10:59] LABS: Bacteria,Urine Rare; Bilirubin,Urine Negative (Negative); Blood,Urine Negative (Negative); Color,Urine Yellow (Lt Yel-Yel); Culture Indicated,Urine Not Indicated; Glucose, Urine Negative (Negative); Ketones,Urine Negative (Negative); Leukocyte Esterase,Urine Negative (Negative); Nitrite,Urine Negative (Negative); PH,Urine 6.0 (5.0-7.0); Protein,Urine Trace (Neg - Trace); RBC,Urine 1 /hpf (0-3); Specific Gravity,Urine 1.017 (1.001-1.035); Squamous Epithelial Cell,Urine 1 /hpf (0-5); Urobilinogen,Urine 8.0 mg/dL (0.0-1.0); WBC,Urine 5 /hpf (0-5)
[2025-01-26 11:05] LABS: Clarity,Urine Hazy (Clear/Hazy)
[2025-01-26] MEDS: HYDROmorphone INJ 2 MG/ML VIAL IVP (16:11)
== END 2025-01-26 19:17 | disposition home or self-care (01) ==
PROVIDERS: Nurse Practitioner Family; Emergency Provider Family Medicine
DX: D64.9 Anemia, unspecified (principal); K56.7 Ileus, unspecified; R00.0 Tachycardia, unspecified; R05.9 Cough, unspecified
CPT/HCPCS: 36415; 36430; 71045; 74018; 80053; 81001; 83735; 83880; 84484; 85025; 85610; 85730; 86850; 86900; 86901; 86923; 93005; 96374; 96375; 96376; 99284; J1171; J1200; J1956; J2405; J2470; J2919; P9016

== ENCOUNTER 2025-01-30 14:53 | Emergency (ER) | payer OTHER, SELFPAY ==
[2025-01-30] VITALS (12 sets, daily range): BP systolic 97–149; BP diastolic 51–76; PULSE 70–130; RESP 16–20; TEMP 36.6–38.4; O2SAT 94–100; BMI 28.0
--- NOTE | 2025-01-30 15:09 | PD.EDRME ---
Rapid Medical Screening Exam RME Arrival date/time: 01/30/25 14:53 Chief Complaint: General Adult/Misc Complain Time Seen by Provider: 01/30/25 15:04 Vital signs: Vital Signs Temperature 101.2 F H 01/30/25 15:03 Pulse Rate 121 H 01/30/25 15:03 Respiratory Rate 18 01/30/25 15:03 Blood Pressure 97/61 01/30/25 15:03 Pulse Oximetry (%) 96 01/30/25 15:03 Oxygen Delivery Method Room Air 01/30/25 15:03 RME Narrative: Hx pancreatic cancer and anemia s/p blood transfusion in ED 01/26/25. Patient reports running fever since transfusion, similar reactions post transfusion in the past. No new symptoms reported. He c/o persistent fatigue. 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
--- NOTE | 2025-01-30 15:11 | XR_ITS ---
Examination: PA chest single view TECHNIQUE: Upright PA chest single view Date and time: January 30, 2025 1333 hours INDICATIONS: Sepsis protocol FINDINGS: Normal heart size. Lungs are clear. The osseous structures are intact IMPRESSION: No active disease.
--- NOTE | 2025-01-30 15:11 | EKG_ITS ---
[facility] Test Date: 2025-01-30 Pat Name: CAMERON EDGAR Department: Room: - Gender: Male Caser Up: : 1965 Requested By: Nirav Krishnan Order Number: [id number] Reading MD: Nirav Krishnan Measurements Intervals [place] Rate: 121 P: 61 HI: 121 QRS: 27 QRSD: 86 T: 43 QT: 287 QTc: 409 Interpretive Statements SINUS TACHYCARDIA NONSPECIFIC T-WAVE ABNORMALITY ABNORMAL RHYTHM ECG Compared to ECG 01/26/2025 06:58:40 No significant changes /store/S0/[id number]/ecg/[id number].pdf
[2025-01-30 15:39] LABS: Lactate (Lactic Acid) 1.1 mMol/L (0.4-2.0)
[2025-01-30 15:43] LABS: Basophils # (Auto) 0.0 Thou/mm3 (0.0-0.2); Basophils % (Auto) 0 % (0-2.5); Eosinophils # (Auto) 0.0 Thou/mm3 (0.0-0.5); Eosinophils % (Auto) 0 % (0-10); Immature Granulocytes Auto 0.03 Thou/mm3 (0.00-0.00); Lymphocytes # (Auto) 0.4 Thou/mm3 (1.0-4.8); Lymphocytes % (Auto) 62 % (10-50); Mean Corpuscular HGB Conc 33.0 g/dl (31.0-37.0); Mean Corpuscular Hemoglobin 28.6 pg (25.0-35.0); Mean Corpuscular Volume 87 fL (80-100); Monocytes # (Auto) 0.1 Thou/mm3 (0.0-0.8); Monocytes % (Auto) 8 % (0-12); Neutrophils # (Auto) 0.2 Thou/mm3 (1.8-7.7); Neutrophils % (Auto) 25 % (37-80); Nucleated Red Blood Cell # 0.00 Thou/mm3 (0.00-0.00); Nucleated Red Blood Cell % 0 /100 WBC (0); RDW Standard Deviation 49.5 fL (35.1-43.9); Red Blood Count 2.24 Miln/mm3 (4.50-5.90)
[2025-01-30 15:58] LABS: White Blood Count 0.6 Thou/mm3 (3.8-10.6)
[2025-01-30 15:59] LABS: Hematocrit 19.4 % (41.0-53.0); Hemoglobin 6.4 g/dL (13.5-16.0); Platelet Count 60 Thou/mm3 (140-440)
[2025-01-30 16:03] LABS: INR 1.4 (0.9-1.3); Partial Thromboplastin Time 27.9 Seconds (22.0-36.0); Prothrombin Time 15.1 Seconds (9.0-12.2)
[2025-01-30 16:14] LABS: Alanine Aminotransferase 15 U/L (10-49); Albumin, Serum 3.1 gm/dL (3.4-4.8); Albumin/Globulin Ratio 0.9 (1.2-2.2); Alkaline Phosphatase 189 U/L (46-116); Anion Gap 10 (7-16); Aspartate Amino Transferase 19 U/L (0-34); BUN/Creatinine Ratio 16 Ratio (12-20); Bilirubin,Total 1.8 mg/dL (0.3-1.2); Blood Urea Nitrogen 14 mg/dL (9-23); Calcium 8.8 mg/dL (8.3-10.6); Calcium (Corrected) 9.5 mg/dL (8.5-10.1); Carbon Dioxide 27.3 mMol/L (20.0-31.0); Chloride 93 mMol/L (98-107); Creatinine (Component) 0.9 mg/dL (0.6-1.3); Estimated Creatinine Clearance 115.8 mL/min (>60); Globulin 3.3 gm/dL (2.3-3.5); Glucose 160 mg/dL (74-106); Osmolality,Calculated 264 (275-295); Potassium 4.6 mMol/L (3.4-5.1); Procalcitonin 0.41 ng/ml (0.0-0.49); Sodium 130 mMol/L (136-145); Total Protein 6.4 gm/dL (5.7-8.2); Troponin I < 0.002 ng/mL (0.0-0.045); eGFR > 60 See Note
[2025-01-30 17:15] LABS: Slide Review Platelets confirmed
--- NOTE | 2025-01-30 17:23 | PD.EDADULT ---
ED General RME/HPI General Chief complaint: General Adult/Misc Complain Stated complaint: NO ENERGY; ISSUES W/ BONE MARROW/ANEMIA Time Seen by Provider: 01/30/25 15:04 Arrival date/time: 01/30/25 14:53 Limitations: no limitations RME / HPI RME / HPI narrative: Hx pancreatic cancer and anemia s/p blood transfusion in ED 01/26/25. Patient reports running fever since transfusion, similar reactions post transfusion in the past. No new symptoms reported. He c/o persistent fatigue. Tylenol taken [address] Mendez HPI Patient is a 59-year-old male with metastatic pancreatic cancer to the emergency department with concerns for weakness, fever. Patient has a history of pancreatic cancer that has metastasized to the liver. 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 He is in the care of a information management specialist. Patient has come to the emergency department multiple times for blood transfusions as his hemoglobin gets very low. Patient denies drugs alc smoking recent travel sick contacts. Patient suffers from chronic pain and constipation secondary to his disease process. In the past has had transfusion reactions where he has required premedication with Tylenol and Benadryl. Patient denies any hemoptysis, hematemesis, melena hematochezia hematuria. No shortness of breath. Related Data Allergies Allergy/AdvReac Type Severity Reaction Status Date / Time hydrocodone Allergy Severe Nausea Verified 01/30/25 14:57 Penicillins Allergy Severe Anaphylaxis Verified 01/30/25 14:57 ED Exam General Limitations: Present no limitations General appearance: Present alert and in no apparent distress Head Head exam: Present atraumatic, normocephalic and other (Appears partially emaciated in the face) Eye Eye exam: Present normal appearance and other ENT ENT exam: Present normal exam, normal oropharynx and other (Dry mucous membranes) Neck Neck exam: Present normal inspection Chest Chest inspection: Present normal inspection; Absent symmetric chest wall rise Respiratory Respiratory exam: Present normal lung sounds bilaterally; Absent respiratory distress, wheezes or stridor Cardiovascular Cardiovascular exam: Present tachycardia Abdominal Exam Abdominal exam: Present soft; Absent distention, tenderness, guarding or rebound Extremities Exam Extremities exam: Present normal inspection and full ROM Neurological Exam Neurological exam: Present alert, oriented X3 and CN II-XII intact; Absent motor sensory deficit Skin Skin exam: Present warm, dry and intact Course Quality Measures none Orders Category Date Time Status Bedside COVID-19 Antigen Test NOW Care 01/30/25 15:11 Active Bedside Influenza A&B Antigen Test NOW Care 01/30/25 15:11 Completed EKG (ED ONLY) *Do not use* NOW Care 01/30/25 15:11 Completed CXR [XR chest 1V] Stat Exams 01/30/25 15:11 Completed EKG (ED Only) Stat Exams 01/30/25 15:11 Draft Blood Culture (Lab) Stat Lab 01/30/25 15:25 Received CBC Stat Lab 01/30/25 15:28 Completed CMP [Comprehensive Metabolic Panel] Stat Lab 01/30/25 15:28 Completed Lactate (Lactic Acid) Stat Lab 01/30/25 15:28 Completed Partial Thromboplastin Time Stat Lab 01/30/25 15:28 Completed Procalcitonin Stat Lab 01/30/25 15:28 Completed Prothrombin Time with INR Stat Lab 01/30/25 15:28 Completed Troponin I Stat Lab 01/30/25 15:28 Completed Type and Screen Stat Lab 01/30/25 15:28 Completed UA [Urinalysis] Stat Lab 01/30/25 15:11 Ordered Urine Culture Stat Lab 01/30/25 15:11 Ordered Vital Signs Vital signs: Vital Signs Temperature 101.2 F H 01/30/25 15:03 Pulse Rate 121 H 01/30/25 15:03 Respiratory Rate 18 01/30/25 15:03 Blood Pressure 97/61 01/30/25 15:03 Pulse Oximetry (%) 96 01/30/25 15:03 Oxygen Delivery Method Room Air 01/30/25 15:03 Critical Care Time Critical Care Time Critical Care Time: Yes Total Critical Care Time (min.): 45 Attestation: I spent 45 minutes of critical care time with this patient not including reportable procedures. There was an acute impairment of an organ system with a high probability of imminent or life threatening deterioration in the patient's condition. Interventions and changes required in the course of therapy are located in the chart. Time involved was spent in direct patient care, reviewing ancillary data, old records, consulting with decision makers, EMS, other doctors, giving orders and documenting. Discharge Plan Plan Patient Disposition: Admit Acute Care w/in Hospital Prescriptions/Referrals Referrals: No Primary/Family,Physician [Primary Care Provider] - In 1 week Problem List Clinical Impression: Neutropenia with fever, Pancytopenia, Anemia, Malignant neoplasm of pancreas metastatic to liver Patient/Caregiver Discharge Instructions Print Language: Armenian Stand Alone Forms: Mile Award Info., Patient Portal Info Letter MDM Narrative MDM hospital course (for use when minimal MDM required): Patient is a 59-year-old male is in the emergency department concerns for fever and weakness. Patient has a history of pancreatic cancer, has been in the care of an oncologist in [place], does not know the name of the oncologist. Is also under the care of a palliative team. Patient was told that he is not amenable to treatment of his pancreatic cancer because of his bone marrow failure. His cancer has metastasized to his liver. Vital signs and exam as listed. Prior provider evaluated patient. Ordered sepsis order set. Concern for neutropenic fever, sepsis, bacteremia, pneumonia, urinary tract infection among others. Patient with evidence of pancytopenia. White blood cells 0.6, hemoglobin 6.4, platelets 60. This is at patient's baseline. Hemoglobin is higher than previously. Will order blood. Patient sodium 130, chloride 93, lactic acid normal. T. bili 1.8. Previously 1.6. Alk phos 189. Procalcitonin not elevated. Patient blood type is a positive. Chest x-ray unremarkable. Will provide patient with antibiotics. He is allergic to hydrocodone and penicillins. Patient states he is able to tolerate morphine. Does not know his reaction to penicillins. I provided patient with vancomycin and meropenem. Gently will fluid resuscitate. Also ordered a unit of blood for transfusion. Provided medication with pain control. Given pancytopenic septic state, will consult to the hospitalist service Clinical Information Provided by: patient Medical Records reviewed [facility] Meds/Rx considered, not ordered None Labs/Rad/Tests considered, not ordered None Chronic Illness/Social Conditions which may negatively complicate care or outcome(s)-explain: other (See MDM) Imaging Imaging Interpretation(s): See MDM Medication Administration(s) none See MDM Consultations/Discussions re: Management Consult #1: Date/time: 01/30/25 5:43 pm Physician, specialty, service, details: Consulted hospitalist service for admission, accepts patient for admission. Diagnosis Differential Diagnosis ED Complaint MDM: Sepsis, neutropenic fever, metastatic pancreatic cancer, pancytopenia, hype
--- NOTE | 2025-01-30 17:37 | XR_ITS ---
Examination: Abdomen AP single view Technique: AP portable supine abdomen, single view Exam date and time: January 30, 2025, 1743 hrs., Comparison January 26, 2025 Indications: Abdominal pain today Findings: Again noted transhepatic biliary drainage catheter, satisfactory position Moderate air and stool throughout the entire colon There are dilated small bowel loops in the left mid and lower abdomen No free air Impression: Satisfactory position Transhepatic biliary drainage catheter There are dilated small bowel loops in the left mid and lower abdomen, clinical correlation advised Consider CT scan abdomen pelvis post intravenous contrast follow-up
--- NOTE | 2025-01-30 18:00 | XR_ITS ---
Examination: Abdomen sonogram, Limited Date and time of exam: January 30, 2025 1811 hrs. Indications: Diagnosis pancreatic carcinoma August 30, 2024, post transhepatic biliary stent and drainage, abdominal pain this week Technique: Real-time keane scale transabdominal sonographic images of the upper abdomen obtained. Findings: Gallbladder sludge Gallbladder wall 0.53 cm possible edema Common bile duct 0.8 cm with biliary stent within the common bile duct Liver 24.5 cm fatty infiltration, right lobe cystic lesion with internal debris 26 x 28 x 24 mm Normal hepatopedal portal venous flow Patent IVC Impression: Gallbladder sludge Abnormal thickening of the gallbladder wall 0.53 cm, consider MRCP follow-up
[2025-01-30] MEDS: MORPHINE SULF INJ 4 MG/ML VIAL IVP ×2 (18:02→21:00)
[2025-01-30] MEDS: ACETAMINOPHEN 325 MG TABLET 650 MG PO ×2 (18:02→22:41)
--- NOTE | 2025-01-30 18:02 | PD.EDADDENDU ---
Emergency Room Addendum Addendum Narrative: Hospitalist service reviewed patient's case, requested that we perform a right upper quadrant ultrasound for further evaluation of patient's hyperbilirubinemia given that in the past per chart review patient has had cholecystitis and was transferred to an outside hospital for biliary stenting. Patient is signed out to oncoming provider Dr. Beaulieu pending results of his right upper quadrant ultrasound, and safe dispo.
[2025-01-30] MEDS: RINGERS LACTATED 1000 ML 1,000 ML 125 ML IV (18:08)
--- NOTE | 2025-01-30 18:23 | EDNOTE_ITS ---
Emergency Room Addendum <Jeanette Malone - Last Filed: 01/30/25 19:59> Addendum Narrative: 1800: Care assumed from Dr. Mendez, the previous shift emergency physician. Past medical, surgical, social and family history reviewed. Vitals and home medications reviewed. Results and treatment plan discussed. I will assume the care of the patient at this time and will follow the patient. Please refer to the emergency department record for history and examination from initial visit. RADIOLOGY RESULTS: [facility] Report Signed Patient: CAMERON EDGAR [facility]. Record#: [id number] Birthdate: 1965 Age/Sex: 59 / M Location: [facility] Attending Dr: Ordering Physician: Qi Mendez MD Date of Service: 01/30/25 Procedure(s): US abdomen limited Accession Number(s): [id number] cc: Christiano Garcia MD; NO PRIMARY/FAMILY,PHYSICIAN; Qi Mendez MD~ Examination: Abdomen sonogram, Limited Date and time of exam: January 30, 2025 1811 hrs. Indications: Diagnosis pancreatic carcinoma August 30, 2024, post transhepatic biliary stent and drainage, abdominal pain this week Technique: Real-time keane scale transabdominal sonographic images of the upper abdomen obtained. Findings: Gallbladder sludge Gallbladder wall 0.53 cm possible edema Common bile duct 0.8 cm with biliary stent within the common bile duct Liver 24.5 cm fatty infiltration, right lobe cystic lesion with internal debris 26 x 28 x 24 mm Normal hepatopedal portal venous flow Patent IVC Impression: Gallbladder sludge Abnormal thickening of the gallbladder wall 0.53 cm, consider MRCP follow-up Dictated By: Christiano Garcia MD Signed By: <Electronically signed by Christiano Garcia MD in OV> 01/30/251908 <Myron Beaulieu DO - Last Filed: 01/30/25 22:14> Addendum Narrative: 1800: Care assumed from Dr. Mendez, the previous shift emergency physician. Past medical, surgical, social and family history reviewed. Vitals and home medications reviewed. Results and treatment plan discussed. I will assume the care of the patient at this time and will follow the patient. Please refer to the emergency department record for history and examination from initial visit. RADIOLOGY RESULTS: [facility] Signed Patient: CAMERON EDGAR [facility]. Record#: [id number] Birthdate: 1965 Age/Sex: 59 / M Location: [facility] Attending Dr: Ordering Physician: Qi Mendez MD Date of Service: 01/30/25 Procedure(s): US abdomen limited Accession Number(s): [id number] cc: Christiano Garcia MD; NO PRIMARY/FAMILY,PHYSICIAN; Qi Mendez MD~ Examination: Abdomen sonogram, Limited Date and time of exam: January 30, 2025 1811 hrs. Indications: Diagnosis pancreatic carcinoma August 30, 2024, post transhepatic biliary stent and drainage, abdominal pain this week Technique: Real-time keane scale transabdominal sonographic images of the upper abdomen obtained. Findings: Gallbladder sludge Gallbladder wall 0.53 cm possible edema Common bile duct 0.8 cm with biliary stent within the common bile duct Liver 24.5 cm fatty infiltration, right lobe cystic lesion with internal debris 26 x 28 x 24 mm Normal hepatopedal portal venous flow Patent IVC Impression: Gallbladder sludge Abnormal thickening of the gallbladder wall 0.53 cm, consider MRCP follow-up Dictated By: Christiano Garcia MD Signed By: <Electronically signed by Christiano Garcia MD in OV> 01/30/251908 I have reviewed the entire case. At 10:05 PM I spoke with Dr. Long at [facility]. Case number is [id number]. Patient is just starting the blood transfusion for his hemoglobin of 6.4. He remains tachycardic between 120 and 130. He has been on maintenance dose of lactated Ringer's. He has already received meropenem and vancomycin for antibiotics. I reviewed the case and saw on the computer and that it was deemed that the patient could not undergo an MRCP due to a metallic valve. I went and spoke with the patient and the patient does not have any metal in his body. The only foreign body he has in his body was a stent for the common bile duct placed in [place] [facility] in August of this year. Therefore it seems as if the patient can undergo MRCP in the morning. [facility] Dr. Weber is hesitant to accept transfer of the patient due to the continued tachycardia and need for the blood transfusion. We discussed this case and we came up with the conclusion that the patient can undergo MRCP in the morning and if no evidence of choledocholithiasis the patient can be admitted here for further treatment and evaluation for his neutropenic fever. The LFTs are only minimally elevated compared to previous. I will consult the hospitalist to see if they will admit this patient tonight without the MRCP.
[2025-01-30] MEDS: Vancomycin Inj 2,000 MG in SODIUM CHLORIDE 0.9% 500 ML 500 ML 150 MG IV (19:25)
[2025-01-30 19:31] LABS: Amylase < 20 U/L (30-118)
--- NOTE | 2025-01-30 20:11 | PC.NURSE ---
Addendum entered by Mickie Perez RN 01/31/25 00:32: blood order Original Note: clarified blood orders per Dr. Beaulieu correct order is Irradiated
[2025-01-30 21:09] LABS: Collection Type, Urine Clean Catch; Squamous Epithelial Cell,Urine 0 /hpf (0-5)
[2025-01-30 21:15] LABS: Bilirubin,Urine Negative (Negative); Blood,Urine Negative (Negative); Clarity,Urine Clear (Clear/Hazy); Color,Urine Yellow (Lt Yel-Yel); Glucose, Urine Negative (Negative); Ketones,Urine Negative (Negative); Leukocyte Esterase,Urine Negative (Negative); Nitrite,Urine Negative (Negative); PH,Urine 6.5 (5.0-7.0); Protein,Urine Negative (Neg - Trace); RBC,Urine < 1 /hpf (0-3); Specific Gravity,Urine 1.014 (1.001-1.035); Urobilinogen,Urine 8.0 mg/dL (0.0-1.0); WBC,Urine 1 /hpf (0-5)
--- NOTE | 2025-01-30 21:43 | PC.NURSE ---
Notified Dr. Beaulieu of hr 130's Per provider continue with blood administration
--- NOTE | 2025-01-30 22:05 | PC.NURSE ---
Transfer initiated with [facility], Information given to Transfer Center. They stated their MD would call contact us back. Christofer on the line now speaking to their MD
--- NOTE | 2025-01-30 22:21 | PC.NURSE ---
Notified of Hr 120's and temp 100.9 new order pending for tylenol
--- NOTE | 2025-01-30 22:30 | PD.EDADDENDU ---
Emergency Room Addendum Addendum Narrative: I spoke with the hospitalist group and because the patient was complaining of right upper quadrant abdominal pain they would prefer us obtain the MRCP prior to admission. The MRCP has been ordered and the patient will undergo the test tomorrow morning.
[2025-01-30] MEDS: HYDROmorphone INJ 2 MG/ML VIAL 1 MG IVP (23:44)
[2025-01-31] VITALS (20 sets, daily range): BP systolic 89–132; BP diastolic 51–66; PULSE 84–99; RESP 16–19; TEMP 37.1–39.3; O2SAT 92–100
--- NOTE | 2025-01-31 | XR_ITS ---
MRI abdomen, without contrast. MRCP Date and time of exam: January 31, 2025, 0903 hours INDICATIONS: Abdominal pain this week, abdomen sonogram January 30, 2025 gallbladder sludge thickening of the gallbladder wall, common bile duct 8 mm Technique: Multiple axial and coronal images of the abdomen have been obtained with the Siemens 1.5T MRI scanner. Images obtained included T1 weighted transverse images, T2-weighted transverse images, T2-weighted transverse images fat-suppressed, T2 weighted haste fat suppressed transverse images, T1 weighted images, in and out of phase images, T2-weighted coronal images, breath hold, T2 weighted haze coronal images as well as T2 weighted coronal thick slab images, MRCP. Findings: Hepatomegaly 28 cm, right lobe liver lesion 38 mm with complex signal Stones versus gallbladder sludge The gallbladder wall does not appear edematous There is extensive abnormal signal deficit in the mid and distal common bile duct, coronal image 17, consistent with sludge and stones The common hepatic duct measures 9 mm No peripancreatic edema Colonic ileus No ascites Spleen not enlarged IMPRESSION: Gallbladder sludge versus stones, negative for gallbladder wall thickening or edema Extrahepatic biliary tract dilatation, extensive abnormal signal deficit in the mid and distal common bile duct consistent with sludge and stones, recommend ERCP follow-up 38 mm complex lesion right lobe the liver, recommend MRI abdomen follow-up pre and postcontrast
--- NOTE | 2025-01-31 00:41 | PC.NURSE ---
Notified Dr. Beaulieu of b/p map currently 65, provider okay with map 65 or greater. No new orders continue with blood administration
[2025-01-31] MEDS: MEROPENEM INJ 1,000 MG in SODIUM CHLORIDE 0.9% (Popper) 50 ML 100 MG IV ×2 (04:54→12:35)
--- NOTE | 2025-01-31 06:43 | EDNOTE_ITS ---
Emergency Room Addendum <Qi Mendez MD - Last Filed: 01/31/25 13:11> Addendum Narrative: Overnight patient hemodynamically stable not in distress. Patient blood cultures positive for gram-negative rods. Patient is already on meropenem and vancomycin. Will schedule. Patient received blood transfusion overnight. No complications. Patient has gallbladder wall thickening and sludge on ultrasound. Has an elevated T. bili. X-ray of the abdomen showed transhepatic biliary drainage catheter in satisfactory position. Patient has air and stool throughout the colon. Hospitalist was consulted overnight, requested that we obtain an MRCP prior to admission. Patient is pending MRCP. 6:45a On my assessment patient GCS 15, not in distress breathing room air. Patient abdomen is soft and nondistended. Post fluid resuscitation, with blood and fluids, patient GCS 15 not in distress. MRCP with evidence of gallbladder sludge versus stones. Negative for gallbladder wall thickening or edema. Patient does have extrahepatic biliary tract dilatation and extensive abnormal signal in the facet in the mid and distal common bile duct consistent with sludge and stones. ERCP recommended. Patient with 38 mm complex lesion in the right lobe of the liver. Given findings on MRCP will initiate transfer. Will likely attempt transfer to a facility that performed biliary stent placement, appears to be [facility] which was performed in August of this year. Repeat labs with hemoglobin less than 7. Ordered a unit of leukoreduced blood. Also ordered medications for premedication to prevent neurologic reaction. Patient has done well with Benadryl and Tylenol per 10:45h I spoke with Dr. Dacosta at [place], . States he will coordinate for transfer to [place], preferably by air. Patient was accepted to transfer to [facility], patient in agreement, updated. Will be transferred he is hemodynamically stable not in distress <Becki Cerda - Last Filed: 01/31/25 11:00> Addendum Narrative: Overnight patient hemodynamically stable not in distress. Patient blood cultures positive for gram-negative rods. Patient is already on meropenem and vancomycin. Will schedule. Patient received blood transfusion overnight. No complications. Patient has gallbladder wall thickening and sludge on ultrasound. Has an elevated T. bili. X-ray of the abdomen showed transhepatic biliary drainage catheter in satisfactory position. Patient has air and stool throughout the colon. Hospitalist was consulted overnight, requested that we obtain an MRCP prior to admission. Patient is pending MRCP. 6:45a On my assessment patient GCS 15, not in distress breathing room air. Patient abdomen is soft and nondistended. Post fluid resuscitation, with blood and fluids, patient GCS 15 not in distress. MRCP with evidence of gallbladder sludge versus stones. Negative for gallbladder wall thickening or edema. Patient does have extrahepatic biliary tract dilatation and extensive abnormal signal in the facet in the mid and distal common bile duct consistent with sludge and stones. ERCP recommended. Patient with 38 mm complex lesion in the right lobe of the liver. Given findings on MRCP will initiate transfer. Will likely attempt transfer to a facility that performed biliary stent placement, appears to be [facility] which was performed in August of this year. 10:45h I spoke with Dr. Dacosta at [place], . States he will coordinate for transfer to [place], preferably by air.
[2025-01-31] MEDS: ACETAMINOPHEN 325 MG TABLET 650 MG PO ×2 (07:41→12:50)
[2025-01-31 07:55] LABS: Basophils # (Auto) 0.0 Thou/mm3 (0.0-0.2); Basophils % (Auto) 2 % (0-2.5); Eosinophils # (Auto) 0.0 Thou/mm3 (0.0-0.5); Eosinophils % (Auto) 0 % (0-10); Immature Granulocytes Auto 0.00 Thou/mm3 (0.00-0.00); Lymphocytes # (Auto) 0.4 Thou/mm3 (1.0-4.8); Lymphocytes % (Auto) 66 % (10-50); Mean Corpuscular HGB Conc 34.0 g/dl (31.0-37.0); Mean Corpuscular Hemoglobin 29.0 pg (25.0-35.0); Mean Corpuscular Volume 85 fL (80-100); Monocytes # (Auto) 0.1 Thou/mm3 (0.0-0.8); Monocytes % (Auto) 11 % (0-12); Neutrophils # (Auto) 0.1 Thou/mm3 (1.8-7.7); Neutrophils % (Auto) 21 % (37-80); Nucleated Red Blood Cell # 0.00 Thou/mm3 (0.00-0.00); Nucleated Red Blood Cell % 0 /100 WBC (0); RDW Standard Deviation 46.4 fL (35.1-43.9); Red Blood Count 2.31 Miln/mm3 (4.50-5.90)
[2025-01-31 08:18] LABS: Alanine Aminotransferase 16 U/L (10-49); Albumin, Serum 2.6 gm/dL (3.4-4.8); Albumin/Globulin Ratio 0.9 (1.2-2.2); Alkaline Phosphatase 156 U/L (46-116); Anion Gap 6 (7-16); Aspartate Amino Transferase 18 U/L (0-34); BUN/Creatinine Ratio 20 Ratio (12-20); Bilirubin,Total 2.4 mg/dL (0.3-1.2); Blood Urea Nitrogen 12 mg/dL (9-23); Calcium 8.4 mg/dL (8.3-10.6); Calcium (Corrected) 9.5 mg/dL (8.5-10.1); Carbon Dioxide 28.6 mMol/L (20.0-31.0); Chloride 96 mMol/L (98-107); Creatinine (Component) 0.6 mg/dL (0.6-1.3); Estimated Creatinine Clearance 135.2 mL/min (>60); Globulin 2.9 gm/dL (2.3-3.5); Glucose 132 mg/dL (74-106); Osmolality,Calculated 264 (275-295); Potassium 4.8 mMol/L (3.4-5.1); Sodium 131 mMol/L (136-145); Total Protein 5.5 gm/dL (5.7-8.2); eGFR > 60 See Note
[2025-01-31 08:26] LABS: Hemoglobin 6.7 g/dL (13.5-16.0); White Blood Count 0.5 Thou/mm3 (3.8-10.6)
[2025-01-31 08:27] LABS: Hematocrit 19.7 % (41.0-53.0); Platelet Count 36 Thou/mm3 (140-440)
--- NOTE | 2025-01-31 09:04 | PC.NURSE ---
PATIENT TO MRI
[2025-01-31 10:22] LABS: Slide Review Platelets confirmed
[2025-01-31] MEDS: VANCOMYCIN/NS 750 MG IVPB 750 MG/150 ML BAG 120 MG IV (10:28)
--- NOTE | 2025-01-31 12:21 | PC.CC ---
Addendum entered by Chrissie Florse RN 01/31/25 13:20: 1318: received call from RENA Francois from [place] for clinical update. Addendum entered by Chrissie Flores RN 01/31/25 12:27: 1226: bedside nurse Idalia aware of transport time Original Note: 1216: Called [facility] Mej[facility] and provided Transport ETA. ED tracker updated 1213: Transport arranged for 1400 pickup 1200: transfer packet w/ CD given to ED MILE Shirley. 1128: Akash Mejias called back with accepting information. ED to ED, accepting is Dr. Evan Greco, report to [phone] 1039: Dr. Mendez and Dr. Dacosta completed peer to peer. 1020: transfer initiated catalina Cool with [place] [facility] dept 1014: received call from Dr. Mendez to request transfer for GI for ERCP.
[2025-01-31] MEDS: HYDROmorphone INJ 2 MG/ML VIAL 0.5 MG IVP (15:27)
--- NOTE | 2025-01-31 15:52 | PC.NURSE ---
REPORT CALLED TO GUEVARA BERNAL
== END 2025-01-31 15:57 | disposition admitted as inpatient to this hospital (09) ==
PROVIDERS: Physician Assistant; Emergency Provider Emergency Medicine
DX: D61.818 Other pancytopenia (principal); C25.9 Malignant neoplasm of pancreas, unspecified; C78.7 Secondary malignant neoplasm of liver and intrahepatic bile duct; K82.8 Other specified diseases of gallbladder
CPT/HCPCS: 36415; 71045; 74018; 74181; 76705; 80053; 81001; 82150; 83605; 84145; 84484; 85025; 85610; 85730; 86850; 86900; 86901; 86923; 87040; 87077; 87086; 87186; 87400; 87811; 93005; 96361; 96365; 96366; 96375; 96376; 99285; J1171; J1200; J2185; J2270; J3370; J3373; J7050; J7120; J7999; P9040; A9270